=== PATIENT | male | born 1950 | race Caucasian/White ===

== ENCOUNTER 2018-04-05 13:37 | Observation (INO) | payer OTHER ==
[2018-04-05 14:27] LABS: Absolute Lymphocytes (CBC) 7.8 K/uL (0.7-4.9); Absolute Monocytes 1.1 K/uL (0.1-1.3); Absolute Neutrophil 6.4 K/uL (1.8-8.0); Basophils % 0.4 % (0-1.3); Eosinophils % 0.5 % (0-4.4); Hematocrit 42.8 % (39.6-49.0); Lymphocytes % 50.6 % (15.3-44.8); MCH 31.2 pg (27.0-35.0); MCV 91.9 fL (80-100); RBC Red Blood Cell Count 4.65 M/uL (4.33-5.43)
--- NOTE | 2018-04-05 14:33 | RAD REPORT ---
EXAM DESCRIPTION: RAD - Chest Single View - 04/05/2018 2:05 pm CLINICAL HISTORY: Chest pain COMPARISON: None. TECHNIQUE: AP portable chest image was obtained 1401 hours . FINDINGS: Lungs are clear. Heart and vasculature are normal. No measurable pleural effusion and no p neumothorax. No gross bony abnormality seen. No acute aortic findings suspected. IMPRESSION: No acute cardiopulmonary process.
[2018-04-05 14:35] LABS: Protime INR 1.11
--- NOTE | 2018-04-05 14:36 | EDPHYS ---
Physician Documentation [facility] Name: Oskar Gomez Age: 67 yrs Sex: Male : 1950 Arrival Date: 04/05/2018 Time: 13:40 Bed 5 Private MD: Ramesh Barker R ED Physician Mani Fields HPI: 04/05 14:25 This 67 yrs old Male presents to ER via Wheelchair with complaints of Chest ps1 Pain > 30 y/o. 14:25 The patient or guardian reports chest pain that is located primarily in the substernal ps1 area. Onset: 1 hour(s) ago. The pain does not radiate. Associated signs and symptoms: The patient has no apparent associated signs or symptoms. The chest pain is described as stabbing. No heart history. . 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 - Social history:: Smoking status: Patient/guardian denies using tobacco, Patient/guardian denies using alcohol, street drugs. - Ebola Screening: : Patient negative for fever greater than or equal to 101.5 degrees Fahrenheit, and additional compatible Ebola Virus Disease symptoms Patient denies exposure to infectious person Patient denies travel to an Ebola-affected area in the 21 days before illness onset No symptoms or risks identified at this time. ROS: 14:26 Constitutional: Negative for fever, chills, and weight loss, Eyes: Negative for injury, ps1 pain, redness, and discharge, Respiratory: Negative for shortness of breath, cough, wheezing, and pleuritic chest pain, Abdomen/GI: Negative for abdominal pain, nausea, vomiting, diarrhea, and constipation, Back: Negative for injury and pain, : Negative for injury, bleeding, discharge, and swelling, Skin: Negative for injury, rash, and discoloration, Neuro: Negative for headache, weakness, numbness, tingling, and seizure. 14:26 Cardiovascular: Positive for chest pain. Exam: 14:26 Constitutional: This is a well developed, well nourished patient who is awake, alert, ps1 and in no acute distress. Head/Face: Normocephalic, atraumatic. Eyes: Pupils equal round and reactive to light, extra-ocular motions intact. Lids and lashes normal. Conjunctiva and sclera are non-icteric and not injected. Chest/axilla: Normal chest wall appearance and motion. Nontender with no deformity. No lesions are appreciated. Cardiovascular: Regular rate and rhythm. No gallops, murmurs, or rubs. Normal PMI, no JVD. No pulse deficits. Respiratory: Lungs have equal breath sounds bilaterally, clear to auscultation and percussion. No rales, rhonchi or wheezes noted. No increased work of breathing, no retractions or nasal flaring. Abdomen/GI: Soft, non-tender, with normal bowel sounds. No distension or tympany. No guarding or rebound. No evidence of tenderness throughout. Skin: Warm, dry with normal turgor. Normal color with no rashes, no lesions, and no evidence of cellulitis. Vital Signs: 13:57 BP 153 / 81; Pulse 88; Resp 14; Temp 98.1; Pulse Ox 99% on R/A; Weight 78.02 kg; Height ch 5 ft. 8 in. (172.72 cm); Pain 3/10; 14:30 BP 163 / 77; Pulse 54; Resp 18; Pulse Ox 98% ; ch 15:00 BP 132 / 47; Pulse 53; Resp 16; Pulse Ox 99% on R/A; ch 13:57 Body Mass Index 26.15 (78.02 kg, 172.72 cm) MDM: 14:36 Patient medically screened. ps1 14:36 Data reviewed: vital signs, nurses notes, lab test result(s), EKG, radiologic studies. ps1 04/05 13:45 Order name: CBC with Diff; Complete Time: 16:02 04/05 13:45 Order name: NT PRO-BNP; Complete Time: 14:48 ps1 04/05 13:45 Order name: PT-INR; Complete Time: 14:42 ps1 04/05 13:45 Order name: Troponin (emerg Dept Use Only); Complete Time: 14:48 ps1 04/05 13:45 Order name: CMP; Complete Time: 14:48 ps1 04/05 14:55 Order name: Troponin I EDMS 04/05 13:45 Order name: XRAY Chest (1 view); Complete Time: 14:36 [facility] 04/05 13:45 Order name: EKG; Complete Time: 13:45 [facility] 04/05 14:55 Order name: CONS Physician Consult [facility] 04/05 14:55 Order name: Troponin I [facility] 04/05 15:33 Order name: Manual Differential; Complete Time: 16:02 [facility] 04/05 16:01 Order name: Urine Dipstick--Ancillary (enter results) 04/05 16:11 Order name: Urine Dipstick-Ancillary [facility] 04/05 13:45 Order name: Cardiac monitoring; Complete Time: 14:35 [facility] 04/05 13:45 Order name: EKG - Nurse/Tech; Complete Time: 14:35 [facility] 04/05 13:45 Order name: IV Saline Lock; Complete Time: 14:35 [facility] 04/05 13:45 Order name: Labs collected and sent; Complete Time: 14:35 [facility] 04/05 13:45 Order name: O2 Per Protocol; Complete Time: 14:35 [facility] 04/05 13:45 Order name: O2 Sat Monitoring; Complete Time: 14:35 [facility] 04/05 13:45 Order name: Urine Dipstick-Ancillary (obtain specimen); Complete Time: 15:44 [facility] 04/05 14:55 Order name: Regular [facility] 04/05 14:55 Order name: EKG Electrocardiogram [facility] 04/05 14:55 Order name: EKG Electrocardiogram [facility] 04/05 14:55 Order name: EKG Electrocardiogram [facility] 04/05 14:55 Order name: EKG Electrocardiogram [facility] EC:56 Rate is 85 beats/min. Rhythm is regular. QRS Brewer is Normal. MI interval is normal. QRS ps1 interval is normal. QT interval is normal. No Q waves. T waves are Normal. No ST changes noted. Clinical impression: Normal ECG. Reviewed by me. Administered Medications: 15:16 Drug: Aspirin 325 mg Route: PO; mg2 16:03 Follow up: Response: No adverse reaction; Marked relief of symptoms mg2 Disposition: 04/05/18 14:36 Hospitalization ordered by Ramesh Barker for Observation. Preliminary diagnosis is Chest pain, unspecified. - Bed requested for Telemetry/MedSurg (observation). - Status is Observation. mg2 - Condition is Stable. - Problem is new. - Symptoms are unchanged. UTI on Admission? No Signatures: Dispatcher [employer] EDMS Lakshmi Moser bd Susan Soto, RN RN ch Dominique Mota RN RN iw Mani Fields MD MD ps1 Barron Brown RN RN mg2 Corrections: (The following items were deleted from the chart) 15:49 14:36 Hospitalization Ordered by Ramesh Barker MD for Observation. Preliminary diagnosis bd is Chest pain, unspecified. Bed requested for Telemetry/MedSurg (observation). Status is Observation. Condition is Stable. Problem is new. Symptoms are unchanged. UTI on Admission? No. ps1 16:19 15:49 04/05/2018 14:36 Hospitalization Ordered by Ramesh Barker MD for Observation. mg2 Preliminary diagnosis is Chest pain, unspecified. Bed requested for Telemetry/MedSurg (observation). Status is Observation. Condition is Stable. Problem is new. Symptoms are unchanged. UTI on Admission? No. bd
--- NOTE | 2018-04-05 14:36 | ER ---
Nurse's Notes [facility] Name: Oskar Gomez Age: 67 yrs Sex: Male : 1950 Arrival Date: 04/05/2018 Time: 13:40 Bed 5 Private MD: Ramesh Barker R Diagnosis: Chest pain, unspecified Presentation: 04/05 13:52 Presenting complaint: Patient states: intermittent left sided CP started 90 minutes iw ago, fells like sharp stabbing pain every minute, mild SOB, is currently on abx for UTI, has been having fever and joint pain but symptoms are improving after starting abx. Transition of care: patient was not received from another setting of care. Onset of symptoms was April 05, 2018. Risk Assessment: Do you want to hurt yourself or someone else? Patient reports no desire to harm self or others. Initial Sepsis Screen: Does the patient meet any 2 criteria? No. Patient's initial sepsis screen is negative. Does the patient have a suspected source of infection? No. Patient's initial sepsis screen is negative. Care prior to arrival: None. 13:52 Method Of Arrival: Wheelchair iw 13:52 Acuity: MARINAA 3 iw Triage Assessment: 13:57 General: Appears in no apparent distress. comfortable, Behavior is calm, cooperative, ch appropriate for age. Pain: Complains of pain in diaphragm, xyphoid area, left breast and epigastric area Pain currently is 3 out of 10 on a pain scale. at worst was 7 out of 10 on a pain scale. Neuro: No deficits noted. Cardiovascular: Heart tones S1 S2 present Capillary refill < 3 seconds in bilateral fingers toes Clubbing of nail beds is present Patient's skin is warm and dry. Pulses are all present. Edema is absent. Cardiovascular: Reports chest pain, Chest pain is described as mild, intermittant. Respiratory: Airway is patent Respiratory effort is even, unlabored, Breath sounds are clear bilaterally. GI: No signs and/or symptoms were reported involving the gastrointestinal system. : No signs and/or symptoms were reported regarding the genitourinary system. Derm: Skin is pink, warm \T\ dry. 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 - Social history:: Smoking status: Patient/guardian denies using tobacco, Patient/guardian denies using alcohol, street drugs. - Ebola Screening: : Patient negative for fever greater than or equal to 101.5 degrees Fahrenheit, and additional compatible Ebola Virus Disease symptoms Patient denies exposure to infectious person Patient denies travel to an Ebola-affected area in the 21 days before illness onset No symptoms or risks identified at this time. Screenin:21 Abuse screen: Denies threats or abuse. Denies injuries from another. Nutritional ph screening: No deficits noted. Tuberculosis screening: No symptoms or risk factors identified. Fall Risk None identified. Assessment: 14:00 Reassessment: Patient appears in no apparent distress at this time. Patient and/or ch family updated on plan of care and expected duration. Pain level reassessed. Patient is alert, oriented x 3, equal unlabored respirations, skin warm/dry/pink. General: Appears in no apparent distress. comfortable, Behavior is calm, cooperative, appropriate for age. Pain: Pain does not radiate. Pain began suddenly. Neuro: No deficits noted. Level of Consciousness is awake, alert, obeys commands, Oriented to person, place, time, situation. Respiratory: No deficits noted. 14:10 Cardiovascular: Heart tones S1 S2 present Capillary refill < 3 seconds in bilateral ch fingers toes Patient's skin is warm and dry. Pulses are all present. Edema is absent. Rhythm is sinus rhythm Chest pain is described as severe, pt states the pain comes and goes, when it is there it is very bad, but now is gone, just a dull ache. 14:10 GI: No signs and/or symptoms were reported involving the gastrointestinal system. : No signs and/or symptoms were reported regarding the genitourinary system. Derm: Skin is pink, warm \T\ dry. 15:12 Reassessment: Patient appears in no apparent distress at this time. Patient and/or ch family updated on plan of care and expected duration. Pain level reassessed. Patient is alert, oriented x 3, equal unlabored respirations, skin warm/dry/pink. 15:16 Reassessment: Patient appears in no apparent distress at this time. Patient and/or mg2 family updated on plan of care and expected duration. Pain level reassessed. Patient is alert, oriented x 3, equal unlabored respirations, skin warm/dry/pink. received report from SERGIO BOLANOS. Vital Signs: 13:57 BP 153 / 81; Pulse 88; Resp 14; Temp 98.1; Pulse Ox 99% on R/A; Weight 78.02 kg; Height 5 ft. 8 in. (172.72 cm); Pain 3/10; 14:30 BP 163 / 77; Pulse 54; Resp 18; Pulse Ox 98% ; ch 15:00 BP 132 / 47; Pulse 53; Resp 16; Pulse Ox 99% on R/A; ch 13:57 Body Mass Index 26.15 (78.02 kg, 172.72 cm) ED Course: 13:40 Patient arrived in ED. sb2 13:41 Ramesh Barker MD is Private Physician. sb2 13:44 Mani Fields MD is Attending Physician. ps1 13:56 Triage completed. iw 13:56 Lydia Chapa, SERGIO is Primary Nurse. ph 13:57 Arm band placed on left wrist. Patient placed in an exam room, on a stretcher, on cardiac nurse, on pulse oximetry. 14:02 X-ray completed. Portable x-ray completed in exam room. Patient tolerated procedure ml well. 14:05 XRAY Chest (1 view) In Process Unspecified. EDMS 14:20 Initial lab(s) drawn, by me, sent to lab. Inserted saline lock: 20 gauge in left ph antecubital area, using aseptic technique. Blood collected. Patient maintains SpO2 saturation greater than 95% on room air. 14:22 Patient has correct armband on for positive identification. Placed in gown. Bed in low ph position. Call light in reach. bus monitor on. Pulse ox on. NIBP on. 14:35 Ramesh Barker MD is Hospitalizing Provider. ps1 16:02 No provider procedures requiring assistance completed. Patient admitted, IV remains in mg2 place. Administered Medications: 15:16 Drug: Aspirin 325 mg Route: PO; mg2 16:03 Follow up: Response: No adverse reaction; Marked relief of symptoms mg2 Outcome: 14:36 Decision to Hospitalize by Provider. ps1 16:02 Admitted to Tele accompanied by nurse, via wheelchair, room 411, with chart, Report mg2 called to SERGIO Borrego 16:02 Condition: stable 16:02 Instructed on the need for admit. 16:19 Patient left the ED. mg2 Signatures: Dispatcher [employer] Susan Stephens, SERGIO RN Dominique Andrade RN RN iw Lopez, Melissa ml Hall, Patricia, RN RN Mani Fields MD MD ps1 Honey Hurley2 Barron Brown RN RN mg2 Corrections: (The following items were deleted from the chart) 15:15 15:14 Reassessment: Patient appears in no apparent distress at this time. Patient ch and/or family updated on plan of care and expected duration. Pain level reassessed. Patient is alert, oriented x 3, equal unlabored respirations, skin warm/dry/pink. Pt resting quietly, awaiting room assignment, VSS, SO at bedside
--- NOTE | 2018-04-05 14:45 | EKG ---
Test Date: 2018-04-05 Test Time: 13:56:37 Food Storeroom Clerk: AG/S MEASUREMENT RESULTS: Intervals: Rate: 85 LA: 120 QRSD: 82 QT: 354 QTc: 421 [place]: P: 58 LA: 120 QRS: -28 T: 24 INTERPRETIVE STATEMENTS: Normal sinus rhythm Possible Left atrial enlargement Borderline ECG Compared to ECG 02/18/2012 16:31:01 Left-axis deviation no longer present Electronically Signed On 04-05-18 14:44:51 CDT by Derrell Garnica
[2018-04-05 14:46] LABS: Albumin 4.5 g/dL (3.4-5.0); Bilirubin Total 0.4 mg/dL (0.2-1.0); Potassium 3.9 mmol/L (3.5-5.1); Protein, Total 8.2 g/dL (6.4-8.2)
[2018-04-05] MEDS ORDERED: ONDANSETRON 4 MG/2 ML VIAL IV PRN (14:54)
[2018-04-05] MEDS ORDERED: MORPHINE 4 MG/ML SYR IV PRN (14:54)
[2018-04-05] MEDS ORDERED: ASPIRIN EC 81 MG TAB PO ONE (15:15)
[2018-04-05 15:32] LABS: Blood Morphology Comment NOT SEEN (NOT SEEN); Platelet Estimate ADEQ
[2018-04-05] MEDS: ASPIRIN EC 81 MG TAB PO SCH (16:00)
[2018-04-05 16:10] LABS: Urine Blood 1+ (NEG); Urine Glucose NEGATIVE (NEG); Urine Protein NEGATIVE (NEG); Urine Specific Gravity 1.015 (1.005-1.030); Urine pH 5.5 (5.0-7.0)
[2018-04-05] MEDS ORDERED: PNEUMOCOCCAL VACCINE 0.5 ML IMVAC ONE (18:00)
[2018-04-05] MEDS: ACETAMINOPHEN 500 MG TAB PO PRN (19:01)
[2018-04-05] MEDS: ENOXAPARIN 80 MG/0.8 ML SQ SCH (20:52)
[2018-04-06 04:35] LABS: Absolute Lymphocytes (CBC) 10.2 K/uL (0.7-4.9); Absolute Monocytes 0.8 K/uL (0.1-1.3); Absolute Neutrophil 5.4 K/uL (1.8-8.0); Basophils % 0.6 % (0-1.3); Eosinophils % 0.5 % (0-4.4); Hematocrit 43.1 % (39.6-49.0); MCH 31.5 pg (27.0-35.0); MCV 90.4 fL (80-100); MPV 7.5 fL (7.6-11.3); Monocytes % 4.9 % (3.3-12.3); RBC Red Blood Cell Count 4.76 M/uL (4.33-5.43)
[2018-04-06 04:53] LABS: Lymphocytes % 61.5 % (15.3-44.8)
[2018-04-06 05:01] LABS: Potassium 4.1 mmol/L (3.5-5.1)
[2018-04-06] MEDS ORDERED: CEFEPIME 2 GM VIAL IV SCH (08:00)
[2018-04-06] MEDS ORDERED: REGADENOSON 0.4 MG/5 ML SYR IV ONE (08:17)
--- NOTE | 2018-04-06 09:23 | RAD REPORT ---
EXAM DESCRIPTION: CT - Abdomen Pelvis Wo Contrast - 04/06/2018 8:22 am CLINICAL HISTORY: Abdominal pain. unresolving uti COMPARISON: CT HEAD SPINE CAP W CONTRAST dated 05/14/2011 TECHNIQUE: CT imaging of the abdomen and pelvis was performed without contrast. Solid organ, bowel a nd vascular assessment is limited due to lack of IV and oral contrast. All CT scans are performed using dose optimization technique as appropriate and may include automated exposure control or mA/KV adjustment according to patient size. FINDINGS: The lower lung reyes are clear. The liver, spleen, pancreas, adrenal glands and kidneys are within normal limits for a limited non-co ntrast examination. No bowel obstruction, free air, free fluid or abscess. The appendix is normal. Lumbosacral degenerative changes are present. IMPRESSION: No acute intra-abdominal or pelvic findings. A limited non-contrast examination was performed as detailed.
[2018-04-06] MEDS: ENOXAPARIN 80 MG/0.8 ML SQ SCH (09:25)
[2018-04-06] MEDS: ASPIRIN EC 81 MG TAB PO SCH (09:25)
[2018-04-06] MEDS: CEFEPIME/SWI 2gm 2 GM/20 ML SYR IV SCH (09:26)
--- NOTE | 2018-04-06 10:33 | ECHO ---
HEIGHT: 5 ft 8 in WEIGHT: 178 lb 0 oz DATE OF STUDY: 04/06/[address]: Son Melendez MD 2-DIMENSIONAL: YES M.MODE: YES DOPPLER: YES COLOR FLOW: YES TDS: NO PORTABLE: NO DEFINITY: NO BUBBLE STUDY: NO DIAGNOSIS: CHEST PAIN CARDIAC HISTORY: CATHERIZATION: NO SURGERY: NO PROSTHETIC VALVE: NO PACEMAKER: NO MEASUREMENTS (cm) DIASTOLIC (NORMALS) SYSTOLIC (NORMALS) IVSd 1.0 (0.6-1.2) LA Diam 4.6 (1.9-4.0) LVEF 60-69% LVIDd 4.9 (3.5-5.7) LVIDs 3.5 (2.0-3.5) %FS 29% LVPWd 1.0 (0.6-1.2) Ao Diam 2.7 (2.0-3.7) 2 DIMENSIONAL ASSESSMENT: RIGHT ATRIUM: NORMAL LEFT ATRIUM: NORMAL RIGHT VENTRICLE: NORMAL LEFT VENTRICLE: NORMAL TRICUSPID VALVE: NORMAL MITRAL VALVE: NORMAL PULMONIC VALVE: NORMAL AORTIC VALVE: NORMAL PERICARDIAL EFFUSION: NONE AORTIC ROOT: NORMAL LEFT VENTRICULAR WALL MOTION: NORMAL. DOPPLER/COLOR FLOW: PHYSIOLOGIC TRICUSPID REGURGITATION. NORMAL RIGHT VENTRICULAR SYSTOLIC PRESSURE. COMMENTS: NORMAL 2D ECHO WITH DOPPLER. TECHNOLOGIST: TASHA MC
[2018-04-06] MEDS ORDERED: BISACODYL E.C. 5 MG TAB PO ONE (13:35)
--- NOTE | 2018-04-06 13:36 | CON ---
Chief Complaint: Chest pain. History Of Present Illness: Mr. Gomez started having chest pains yesterday around noon. The pains a re described as several hours of stabbing pain that would het hard, feel like an ice pick go away in less than a second, only to come back 30 seconds later, 15 seconds later, or hours later. He has had too many dozens of the pains. He is presently feeling good. He has been in the hospital overnight where cardiac enzymes are borderline. The troponins are 0.06 and 0.07. Mr. Gomez has never had myoc ardial infarction or stroke. Does not use tobacco. Never had any vascular disease. Does not have d iabetes. Does not take blood pressure or diabetes medicines. He gets checkups with Dr. Barker and is considered not in need of those medications. No recent surgeries, fevers, or illnesses. Allergies: HE HAS NO ALLERGIES. Physical Examination: General: He is alert, oriented, pleasant. Vital Signs: 5 feet 8 inches, 178 pounds. Blood pressure 126/64, pulse 81, temperature 99.8. Lungs: Clear. Cardiac: Normal. Carotids: No bruit. Extremities: Normal. No cyanosis, clubbing, or edema. Diagnostic Data: EKG shows possible left atrial abnormality, otherwise normal. His chest x-ray look s normal. He has had a CT of the abdomen, which has not been reported out by the radiologist yet. W e are unable to view the images. I am not able to see anything there that would be the cause of his chest pain, but again the radiologist's report is not available. Apparently, it is a noncontrast CT of the abdomen. We will wait for the radiologist's opinion. Impression: The patient probably is not having coronary artery disease. We will do echocardiogram, pharmacologic stress test to see what we learn. The troponins of 0.06 and 0.07 do not necessarily in dicate an acute coronary syndrome. We will do a cardiac cath if there appeared to be ischemic heart disease. CLARA/SEVERINO Voice ID: [id number] Report ID: [id number]
--- NOTE | 2018-04-06 13:46 | RAD REPORT ---
EXAM DESCRIPTION: NM - Rest Stress Cardiac Imaging - 04/06/2018 1:33 pm CLINICAL HISTORY: Chest pain. COMPARISON: None. TECHNIQUE: The patient was administered approximately 10mCi of Tc 99m Sestamibi prior to resting SPE CT imaging of the heart. The patient was then administered approximately 30 mCi of Tc 99m Sestamibi f ollowing exercise or pharmacologic stress. Multiplanar SPECT images were reviewed. FINDINGS: There is uniformity of radiotracer activity involving the entire left ventricular myocard ium on rest and stress sequences. The left ventricular ejection fraction equals 54% IMPRESSION: Negative for a myocardial perfusion defect
--- NOTE | 2018-04-06 14:32 | TREADPHA ---
DX: CHEST PAIN Date of Study: 04/06/2018 Ht: 5 8 Wt: 178 lb 0 oz Consulting Physician: BEBO MEDICATIONS: TYLENOL, ASPIRIN, LOVENOX, ZOFRAN HISTORY: 67 YEAR OLD MALE WITH CHEST PAIN. HISTORY OF HEP C. PHYSICIAL EXAMINATION: RESTING B.P.: 122/70 RESTING H.R.: 74 RESTING EKG: NORMAL PROTOCOL: LEXISCAN EXERCISE TIME: 3:30 B.P. AT PEAK STRESS: 160/94 IMPRESSION: LEXISCAN INJECTED. CARDIOLITE INJECTED PER PROTOCOL. SEE NUCLEAR MEDICINE REPORT. NO CHEST PAIN. NO VENTRICULAR TACHYCARDIA OR SUPRAVENTRICULAR TACHYCARDIA NOTED. PREMATURE VENTRICULAR COMPLEXES NOTED THROUGHOUT TEST. NON DIAGNOSTIC EKG WITH LEXISCAN STRESS TEST.
--- NOTE | 2018-04-06 14:35 | EKG ---
Test Date: 2018-04-06 Test Time: 07:43:03 Fisher Pot: VIJI MEASUREMENT RESULTS: Intervals: Rate: 87 [place]: 126 QRSD: 84 QT: 374 QTc: 450 [place]: P: 62 AZ: 126 QRS: -23 T: 14 INTERPRETIVE STATEMENTS: Sinus rhythm with occasional premature ventricular complexes Otherwise normal ECG Compared to ECG 04/05/2018 13:56:37 Ventricular premature complex(es) now present Electronically Signed On 04-06-18 14:34:28 CDT by Son Melendez
[2018-04-06] MEDS: ACETAMINOPHEN 500 MG TAB PO PRN (15:37)
--- NOTE | 2018-04-06 17:44 | HP ---
Date of Admission: 04/05/2018 Chief Complaint: Recurrent chest pain. History Of Present Illness: A 67-year-old male was brought to the emergency room with recurrent epis odes of chest pain in the precordial area. There was no history of fever, chills, rigors, however, t he patient according to him, was seen in [facility]gent [facility] Center where he was diagnosed to have urinary tr act infection. He is on Cipro. The patient denied any history of shortness of breath. Past Medical History: The patient is known to have history of hepatitis, in remission. Past Surgical History: Positive for shoulder surgery and back surgeries. Allergies: NONE. Home Medicines: Cipro. Review of Systems: No history of abdominal pain, shortness of breath. Physical Examination: General: Revealed 67-year-old male in acute distress. Vital Signs: Normal. HEENT: Negative. Neck: Supple. JVD negative. Chest: Clear. Heart: Regular. Abdomen: Soft. Extremities: No edema. Neurological: Negative. Laboratory Data: White count elevated to 15,000. Urinalysis positive for UTI. BNP normal. Troponi n borderline elevations of 0.6 and 0.7. Assessment: 1.Recurrent chest pain. 2.Borderline elevation of troponin. 3.Recently diagnosed urinary tract infection. Plan: The patient has been started on Lovenox and aspirin, pending the Cardiology recommendations. LIZETH/SEVERINO Voice ID: [id number]
[2018-04-07 04:54] LABS: Absolute Lymphocytes (CBC) 8.7 K/uL (0.7-4.9); Absolute Monocytes 0.9 K/uL (0.1-1.3); Absolute Neutrophil 5.4 K/uL (1.8-8.0); Basophils % 0.4 % (0-1.3); Eosinophils % 0.9 % (0-4.4); Hematocrit 43.9 % (39.6-49.0); MCH 31.1 pg (27.0-35.0); MCV 91.8 fL (80-100); MPV 7.6 fL (7.6-11.3); Monocytes % 5.8 % (3.3-12.3); RBC Red Blood Cell Count 4.78 M/uL (4.33-5.43)
[2018-04-07 05:03] LABS: Lymphocytes % 57.5 % (15.3-44.8)
--- NOTE | 2018-04-07 10:19 | RAD REPORT ---
EXAM DESCRIPTION: CTAbdomen Pelvis W Contrast - 04/07/2018 9:25 am CLINICAL HISTORY: Abdominal pain. febrile illness COMPARISON: Abdomen Pelvis Wo Contrast dated 04/06/2018; CT HEAD SPINE CAP W CONTRAST dated 05/14/2011 TECHNIQUE: Biphasic CT imaging of the abdomen and pelvis was performed with 100 ml non-ionic IV cont rast. All CT scans are performed using dose optimization technique as appropriate and may include automated exposure control or mA/KV adjustment according to patient size. FINDINGS: The lung bases are clear. The liver, spleen, pancreas, adrenal glands and kidneys are within normal limits. No bowel obstruction, free air, free fluid or abscess. The appendix is normal. No evidence of signi ficant lymphadenopathy. No suspicious bony findings. IMPRESSION: No acute intra-abdominal or pelvic finding.
[2018-04-07] MEDS: CEFEPIME/SWI 2gm 2 GM/20 ML SYR IV SCH (10:41)
[2018-04-07] MEDS: ASPIRIN EC 81 MG TAB PO SCH (10:42)
--- NOTE | 2018-04-29 14:11 | DS ---
Date of Discharge: 04/07/2018 Final Diagnoses: 1.Chest pain. 2.Urinary tract infection. Hospital Course: This patient was brought to the emergency room because of recurrent chest pain. Th e patient had borderline elevation of troponin. The patient subsequently underwent pharmacological s tress test. There was no evidence of ischemia. The patient had a CAT scan of the abdomen to see if there was any reason to have other causes of his chest pain. Essentially, CAT scan was negative. Th e patient was continued on antibiotic while he was in the hospital. He was also given antibiotics to take home to continue to take, and follow up in the office. Laboratory Data: White count [id number], troponin 0.6. Urinalysis, evidence of infection present. LIZETH/SEVERINO Voice ID: [id number] Report ID: [id number]
== END 2018-04-07 14:58 | disposition home or self-care (01) ==
LOC: ER 13:37 → ERHOLD 14:54 → 4TH 16:02
PROVIDERS: ADMIT Internal Medicine; ATTEND Internal Medicine
DX: R07.9 Chest pain, unspecified (principal); R74.8 Abnormal levels of other serum enzymes; N39.0 Urinary tract infection, site not specified; Z79.2 Long term (current) use of antibiotics; B18.2 Chronic viral hepatitis C
CPT/HCPCS: 36415 ×2; 71045; 74176; 74177; 78452; 80048; 80053; 81003; 83880; 84484 ×3; 85025 ×3; 85610; 87040; 93005 ×2; 93017; 93306; 99285; A9500; G0103; G0378 ×2; J0692 ×2; J1650 ×2; J2785; Q9967

== ENCOUNTER 2018-11-30 16:20 | Observation (INO) | payer OTHER ==
[2018-11-30] MEDS: ALBUTEROL 2.5 MG/3 ML NEB SOL NEB SCH ×2 (17:38→19:51)
[2018-11-30 17:59] LABS: Absolute Lymphocytes (CBC) 8.8 K/uL (0.7-4.9); Basophils % 0.3 % (0-1.3); Eosinophils % 1.3 % (0-4.4); Hematocrit 45.2 % (39.6-49.0); Lymphocytes % 41.7 % (15.3-44.8); MPV 6.5 fL (7.6-11.3); Monocytes % 4.6 % (3.3-12.3)
[2018-11-30 18:14] LABS: Albumin 4.4 g/dL (3.4-5.0); Bilirubin Total 0.6 mg/dL (0.2-1.0); Potassium 4.3 mmol/L (3.5-5.1); Protein, Total 8.4 g/dL (6.4-8.2)
[2018-11-30 18:56] LABS: Blood Morphology Comment NOT SEEN (NOT SEEN); Platelet Estimate ADEQ; Platelets, Giant NOTED
[2018-11-30] MEDS: Levofloxacin500mg IV 500 MG/100 ML BAG IV SCH (19:25)
[2018-11-30 22:19] LABS: Urine Appearance CLEAR; Urine Bilirubin NEGATIVE (NEG); Urine Blood NEGATIVE (NEG); Urine Color YELLOW; Urine Glucose NEGATIVE (NEG); Urine Protein NEGATIVE (NEG); Urine Urobilinogen 0.2 mg/dL (0.2-1.0)
[2018-11-30 22:34] LABS: Urine Microscopic Reflex ORDER UMIC
[2018-11-30 22:59] LABS: Urine Bacteria <20 /HPF (NONE SEEN); Urine Culture Reflex Order REFLEXED
[2018-11-30 23:00] LABS: Urine RBC <5 /HPF (NONE SEEN)
[2018-12-01] MEDS: ALBUTEROL 2.5 MG/3 ML NEB SOL NEB SCH ×4 (01:17→20:15)
[2018-12-01] MEDS: Levofloxacin500mg IV 500 MG/100 ML BAG IV SCH (17:25)
--- NOTE | 2018-12-02 01:31 | HP ---
Date of Admission: 11/30/2018 Chief Complaint: Pneumonia. History Of Present Illness: A 68-year-old male was seen in the Urgent Care roughly 10 days to 2 week s ago. He was given Augmentin for upper respiratory infection. He returned to Urgent Care because o f continued cough and fever. He had chest x-ray, which showed pneumonia. The patient was given Bact rim. The patient, however, followed up in the office with continued symptoms in view of failure of o ral antibiotic and pneumonia as well as febrile nature. The patient is admitted for IV antibiotic [facility] ([place], [place]). The patient denied any history of chest pain. Past Medical History: Essentially negative. No history of hypertension, diabetes. Family History: Noncontributory. Personal History: No known allergies. Current Medicines: Bactrim. Review of Systems: No chest pain. Physical Examination: General: Revealed 68-year-old male with mild wheezing. HEENT: Congested throat. Neck: Supple. JVD negative. Chest: Crackles, left more than the right. Heart: Regular. Abdomen: Soft. Extremities: No edema. Laboratory Data: White count elevated to 21,000. Chem profile essentially negative. Assessment: Pneumonia, failure of oral antibiotics. Plan: IV Levaquin, breathing treatments, follow up chest x-ray. LIZETH/SEVERINO Voice ID: [id number]
[2018-12-02] MEDS: ALBUTEROL 2.5 MG/3 ML NEB SOL NEB SCH ×4 (02:50→20:00)
--- NOTE | 2018-12-02 08:51 | RAD REPORT ---
EXAM DESCRIPTION: Sobeida Pa And Lat (2 Views)12/02/2018 8:07 am CLINICAL HISTORY: Cough COMPARISON: November 29, 2018 FINDINGS: Mild left lung opacities have partially resolved. A 7 millimeter nodular opacity overlies the mid to lower left lung. Most likely this represents a nip ple shadow. As a pulmonary nodule can also have this appearance it is recommended that the patient bar ve frontal and oblique views of the chest with a left nipple marker. The heart is normal size
--- NOTE | 2018-12-02 16:15 | RAD REPORT ---
EXAM DESCRIPTION: RAD - Chest W Obliques - 12/02/2018 4:08 pm CLINICAL HISTORY: Pneumonia, abnormal chest film COMPARISON: Two view chest December 02 TECHNIQUE: AP and bilateral oblique views of the chest were obtained with nipple markers in place. FINDINGS: Small nodular density seen on the earlier examination represents a nipple shadow. No focal consolidation or suspicious mass. No failure or volume overload. IMPRESSION: Small nodule seen on the earlier chest film represents a nipple shadow. No pneumonia or acute lung parenchymal process.
[2018-12-02] MEDS: Levofloxacin500mg IV 500 MG/100 ML BAG IV SCH (17:06)
--- NOTE | 2018-12-02 23:43 | PN ---
The patient is doing better. He still has considerable amount of wheezing. Chest x-ray done showed pulmonary nodule. A repeat x-ray has been ordered to see whether there is a true pulmonary nodule. LIZETH/SEVERINO Voice ID: [id number] Report ID: [id number]
[2018-12-03] MEDS: ALBUTEROL 2.5 MG/3 ML NEB SOL NEB SCH ×2 (02:00→07:57)
== END 2018-12-03 10:21 | disposition home or self-care (01) ==
LOC: 2ND 16:31 → INTOOBSV 16:31
PROVIDERS: ADMIT Internal Medicine; ATTEND Internal Medicine
DX: J18.9 Pneumonia, unspecified organism (principal); R91.1 Solitary pulmonary nodule
CPT/HCPCS: 87040 ×2; 87088; 87070; 85025; 36415; 87205; 83605; 80053; 71046; 71022; 94640; G0379; G0378; 81003; 81015; 87086

== ENCOUNTER 2021-02-13 08:13 | Emergency (ER) | payer OTHER ==
--- NOTE | 2021-02-13 09:21 | RAD REPORT ---
EXAM DESCRIPTION: RAD - Elbow Right 3 View - 02/13/2021 9:16 am CLINICAL HISTORY: PAIN COMPARISON: No comparisons FINDINGS: Moderate arthritic changes are present involving the right elbow. A small elbow joint effu jessie is likely present as well. No acute fracture seen.
[2021-02-13] MEDS ORDERED: METHYLPREDNISOLONE 125 MG INJ ONE (10:02)
[2021-02-13] MEDS ORDERED: HYDROCODONE/APAP 7.5/325 MG TAB ONE (10:02)
[2021-02-13] MEDS ORDERED: KETOROLAC 30 MG/ML INJ ONE (10:03)
[2021-02-13] MEDS ORDERED: NA CHLORIDE 0.9% 100 ML ONE (11:06)
[2021-02-13] MEDS ORDERED: METHOCARBAMOL 1,000 MG/10 ML VIAL IV ONE (11:06)
--- NOTE | 2021-02-13 12:02 | EDPHYS ---
Physician Documentation [facility] Name: Oskar Gomez Age: 70 yrs Sex: Male : 1950 Arrival Date: 02/13/2021 Time: 08:16 Bed 19 Private MD: Ramesh Barker R ED Physician Shantanu Etienne HPI: 02/13 14:09 This 70 yrs old Male presents to ER via Ambulatory with complaints of Arm kdr Pain. 14:09 The patient or guardian complains of decreased range of motion, injury, pain, spasm, kdr tightness, tenderness. The complaints affect the dorsal aspect of right forearm and right elbow. Context: The problem was sustained at home, resulted from unknown cause. Onset: The symptoms/episode began/occurred acutely, suddenly, at 02:30. Treatment prior to arrival includes: no previous treatment. Modifying factors: The symptoms are alleviated by remaining still, the symptoms are aggravated by movement, bending arm. Associated signs and symptoms: The patient has no apparent associated signs or symptoms. Severity of symptoms: At their worst the symptoms were moderate, incapacitating, just prior to arrival, in the emergency department the symptoms are unchanged. The patient has not experienced similar symptoms in the past. The patient has not recently seen a physician. Historical: - Allergies: 11:21 No Known Allergies; kg - PMHx: 11:21 hep c in remission; Chromic Lymphocytic Leukemia; kg - Immunization history:: Adult Immunizations up to date. - Social history:: Smoking status: Patient denies any tobacco usage or history of. ROS: 14:09 Constitutional: Negative for fever, chills, and weight loss, Eyes: Negative for injury, kdr pain, redness, and discharge, ENT: Negative for injury, pain, and discharge, Neck: Negative for injury, pain, and swelling, Cardiovascular: Negative for chest pain, palpitations, and edema, Respiratory: Negative for shortness of breath, cough, wheezing, and pleuritic chest pain, Abdomen/GI: Negative for abdominal pain, nausea, vomiting, diarrhea, and constipation, Back: Negative for injury and pain, : Negative for injury, bleeding, discharge, and swelling, Skin: Negative for injury, rash, and discoloration, Neuro: Negative for headache, weakness, numbness, tingling, and seizure activity. Psych: Negative for depression, anxiety, suicide ideation, homicidal ideation, and hallucinations, Allergy/Immunology: Negative for hives, rash, and allergies, Endocrine: Negative for neck swelling, polydipsia, polyuria, polyphagia, and marked weight changes, Hematologic/Lymphatic: Negative for swollen nodes, abnormal bleeding, and unusual bruising. 14:09 MS/extremity: Positive for decreased range of motion, pain, of the dorsal aspect of right forearm and right elbow. Exam: 14:09 Constitutional: This is a well developed, well nourished patient who is awake, alert, kdr and in no acute distress. Head/Face: Normocephalic, atraumatic. Eyes: Pupils equal round and reactive to light, extra-ocular motions intact. Lids and lashes normal. Conjunctiva and sclera are non-icteric and not injected. Cornea within normal limits. Periorbital areas with no swelling, redness, or edema. Neck: Trachea midline, no thyromegaly or masses palpated, and no cervical lymphadenopathy. Supple, full range of motion without nuchal rigidity, or vertebral point tenderness. No Meningismus. 14:09 Musculoskeletal/extremity: Extremities: grossly normal except: noted in the dorsal aspect of right forearm and right elbow: decreased ROM, pain, Spasm with any movement of the elbow. . Vital Signs: 08:35 BP 200 / 96; Pulse 80; Resp 18; Temp 98.7; Pulse Ox 99% on R/A; Weight 79.38 kg (R); kg Height 5 ft. 8 in. (172.72 cm) (R); Pain 7/10; 08:38 BP 200 / 96; Pulse 80; Resp 18; Temp 98.7(O); Pulse Ox 99% on R/A; Weight 79.38 kg; mh5 Height 5 ft. 8 in. (172.72 cm); Pain 10/10; 09:00 BP 154 / 70; Pulse 75; Resp 20; Pulse Ox 96% on R/A; kg 10:00 BP 169 / 81; Pulse 79; Resp 20; Pulse Ox 96% on R/A; kg 11:00 BP 176 / 94; Pulse 81; Resp 20; Pulse Ox 95% ; kg 12:00 BP 159 / 84; Pulse 75; Resp 20; Pulse Ox 95% on R/A; kg 08:38 Body Mass Index 26.61 (79.38 kg, 172.72 cm) mh5 MDM: 12:01 Patient medically screened. kdr 14:09 Data reviewed: vital signs, nurses notes. Counseling: I had a detailed discussion with kdr the patient and/or guardian regarding: the historical points, exam findings, and any diagnostic results supporting the discharge/admit diagnosis, lab results, radiology results, the need for outpatient follow up. Response to treatment: the patient's symptoms have markedly improved after treatment, patient is well hydrated. Special discussion: I discussed with the patient/guardian in detail that at this point there is no indication for admission to the hospital. It is understood, however, that if the symptoms persist or worsen the patient needs to return immediately for re-evaluation. 02/13 08:51 Order name: Elbow Right 3 View XRAY; Complete Time: 10:09 kdr Administered Medications: 09:34 Drug: SOLU-Medrol (methylPrednisoLONE) 125 mg Route: IVP; Site: left antecubital; kg 10:00 Follow up: Response: No adverse reaction kg 09:34 Drug: TORadol - (ketorolac) 15 mg Route: IVP; Site: left antecubital; kg 10:00 Follow up: Response: No adverse reaction kg 09:34 Drug: [place] (HYDROcodone-acetaminophen) (7.5 mg-325 mg) 1 tabs Route: PO; kg 10:00 Follow up: Response: No adverse reaction; Pain is unchanged, physician notified kg 10:47 Drug: Robaxin (methocarbamol) 1 grams Route: IVPB; Infused Over: 1 hrs; Site: right kg forearm; 11:15 Follow up: IV Status: Completed infusion; IV Intake: 100ml kg Disposition: 02/13/21 12:01 Discharged to Home. Impression: Pain in right elbow. - Condition is Stable. - Discharge Instructions: Arthritis, Musculoskeletal Pain, Cryotherapy, [id number], Joint Pain, Rcrx-kn-Butz. - Prescriptions for Ibuprofen 800 mg Oral Tablet - take 1 tablet by ORAL route every 8 hours As needed take with food; 30 tablet. Robaxin 500 mg Oral Tablet - take 2 tablet by ORAL route every 6 hours As needed; 40 tablet. Medrol (Rico) 4 mg Oral Tablets, Dose Pack - take 1 tablet by ORAL route as directed - follow package instructions; 1 packet. Tramadol 50 mg Oral Tablet - take 1 tablet by ORAL route every 8 hours as needed; 12 tablet. - Medication Reconciliation Form, Thank You Letter, Prescription Opioid Use form. - Follow up: Ramesh Barker MD; When: 2 - 3 days; Reason: If symptoms return, Further diagnostic work-up, Recheck today's complaints, Continuance of care, Re-evaluation by your physician. - Problem is new. - Symptoms have improved. Signatures: Dispatcher [employer] EDShantanu Dodd MD MD kdr Renu Natarajan RN RN kg Corrections: (The following items were deleted from the chart) 12:13 12:01 02/13/2021 12:01 Discharged to Home. Impression: Pain in right elbow. Condition kg is Stable. Forms are Medication Reconciliation Form, Thank You Letter, Antibiotic Education, Prescription Opioid Use. Follow up: Ramesh Barker; When: 2 - 3 days; Reason: If symptoms return, Further diagnostic work-up, Recheck today's complaints, Continuance of care, Re-evaluation by your physician. Problem is new. Symptoms have improved. kdr
--- NOTE | 2021-02-13 12:02 | ER ---
Nurse's Notes [facility] Name: Oskar Gomez Age: 70 yrs Sex: Male : 1950 Arrival Date: 02/13/2021 Time: 08:16 Bed 19 Private MD: Ramesh Barker R Diagnosis: Pain in right elbow Presentation: 02/13 08:35 Initial Sepsis Screen: Does the patient meet any 2 criteria? No. Patient's initial kg sepsis screen is negative. Does the patient have a suspected source of infection? No. Patient's initial sepsis screen is negative. Risk Assessment: Do you want to hurt yourself or someone else? Patient reports no desire to harm self or others. Onset of symptoms was February 13, 2021. 08:35 Acuity: MARIANA 4 kg 08:42 Chief complaint: Patient states: Pt presents from home via POV with complaints of right kg shoulder, elbow, and arm pain starting last night. Coronavirus screen: Client denies travel out of the [place] in the last 14 days. Ebola Screen: Patient negative for fever greater than or equal to 101.5 degrees Fahrenheit, and additional compatible Ebola Virus Disease symptoms Patient denies exposure to infectious person. Patient denies travel to an Ebola-affected area in the 21 days before illness onset. 08:42 Method Of Arrival: Ambulatory kg Historical: - Allergies: 11:21 No Known Allergies; kg - PMHx: 11:21 hep c in remission; Chromic Lymphocytic Leukemia; kg - Immunization history:: Adult Immunizations up to date. - Social history:: Smoking status: Patient denies any tobacco usage or history of. Screenin:50 Abuse screen: Denies threats or abuse. Denies injuries from another. Nutritional kg screening: No deficits noted. Tuberculosis screening: No symptoms or risk factors identified. Fall Risk None identified. No fall in past 12 months (0 pts). No secondary diagnosis (0 pts). No IV (0 pts). Ambulatory Aid- None/Bed Rest/Nurse Assist (0 pts). Gait- Normal/Bed Rest/Wheelchair (0 pts) Mental Status- Oriented to own ability (0 pts). Total Cherry Fall Scale indicates No Risk (0-24 pts). Assessment: 08:47 General: Appears in no apparent distress. Behavior is calm, cooperative, appropriate kg for age, quiet. Pain: Complains of pain in right arm Pain does not radiate. Pain currently is 7 out of 10 on a pain scale. at worst was 10 out of 10 on a pain scale. level that patient reports is acceptable is 3 out of 10 on a pain scale. Quality of pain is described as sharp, stabbing, Pain began 4 hours ago. Is continuous, Alleviated by nothing. Aggravated by exercise, repositioning, Noted to be grimacing. Neuro: No deficits noted. Cardiovascular: No deficits noted. Respiratory: No deficits noted. GI: No deficits noted. : No deficits noted. EENT: No deficits noted. Derm: No deficits noted. Musculoskeletal: No deficits noted. Musculoskeletal: Reports pain in anterior aspect of right shoulder, right bicep, right antecubital area, dorsal aspect of right forearm, posterior aspect of right shoulder, right tricep, right elbow and palmar aspect of right forearm since This AM. Pain is 7 out of 10 on a pain scale. Vital Signs: 08:35 BP 200 / 96; Pulse 80; Resp 18; Temp 98.7; Pulse Ox 99% on R/A; Weight 79.38 kg (R); kg Height 5 ft. 8 in. (172.72 cm) (R); Pain 7/10; 08:38 BP 200 / 96; Pulse 80; Resp 18; Temp 98.7(O); Pulse Ox 99% on R/A; Weight 79.38 kg; mh5 Height 5 ft. 8 in. (172.72 cm); Pain 10/10; 09:00 BP 154 / 70; Pulse 75; Resp 20; Pulse Ox 96% on R/A; kg 10:00 BP 169 / 81; Pulse 79; Resp 20; Pulse Ox 96% on R/A; kg 11:00 BP 176 / 94; Pulse 81; Resp 20; Pulse Ox 95% ; kg 12:00 BP 159 / 84; Pulse 75; Resp 20; Pulse Ox 95% on R/A; kg 08:38 Body Mass Index 26.61 (79.38 kg, 172.72 cm) [facility] ED Course: 08:16 Patient arrived in ED. mr 08:16 Ramesh Barker MD is Private Physician. mr 08:41 Shantanu Etienne MD is Attending Physician. kdr 08:42 Delgado, Renu, RN is Primary Nurse. kg 08:44 Patient has correct armband on for positive identification. Bed in low position. Call mh5 light in reach. Side rails up X2. Warm blanket given. Pulse ox on. NIBP on. 08:47 Triage completed. kg 09:15 Elbow Right 3 View XRAY In Process Unspecified. EDMS 11:21 Arm band placed on left wrist. kg 12:00 Ramesh Barker MD is Referral Physician. kdr 12:12 No provider procedures requiring assistance completed. IV discontinued, intact, kg bleeding controlled, No redness/swelling at site. Pressure dressing applied. Administered Medications: 09:34 Drug: SOLU-Medrol (methylPrednisoLONE) 125 mg Route: IVP; Site: left antecubital; kg 10:00 Follow up: Response: No adverse reaction kg 09:34 Drug: TORadol - (ketorolac) 15 mg Route: IVP; Site: left antecubital; kg 10:00 Follow up: Response: No adverse reaction kg 09:34 Drug: [place] (HYDROcodone-acetaminophen) (7.5 mg-325 mg) 1 tabs Route: PO; kg 10:00 Follow up: Response: No adverse reaction; Pain is unchanged, physician notified kg 10:47 Drug: Robaxin (methocarbamol) 1 grams Route: IVPB; Infused Over: 1 hrs; Site: right kg forearm; 11:15 Follow up: IV Status: Completed infusion; IV Intake: 100ml kg Intake: 11:15 IV: 100ml; Total: 100ml. kg Outcome: 12:01 Discharge ordered by . kdr 12:12 Discharged to home ambulatory. kg 12:12 Condition: good 12:12 Discharge instructions given to patient, family, significant other, Instructed on discharge instructions, follow up and referral plans. Demonstrated understanding of instructions, follow-up care, medications, Prescriptions given X 4. 12:13 Patient left the ED. kg Signatures: Dispatcher [employer] EDMS Shantanu Etienne MD MD [facility] Mitchell, Becki mr BoydMichelle [facility] Renu Natarajan RN RN kg
[2021-02-13 12:18] VITALS: TEMP 98.7
[2021-02-13 12:24] VITALS: O2SAT 95
[2021-02-13 12:26] VITALS: BP 159/84
== END 2021-02-13 12:13 | disposition home or self-care (01) ==
LOC: ER 08:13
DX: M25.521 Pain in right elbow (principal)
CPT/HCPCS: 96365; 73080; 96375; 99284; J2930; J2800

== ENCOUNTER 2023-05-22 09:49 | Emergency (ER) | payer OTHER ==
[2023-05-22 10:20] LABS: Absolute Lymphocytes (CBC) 12.8 K/uL (0.7-4.9); Hematocrit 42.5 % (39.6-49.0); Lymphocytes % 69.9 % (15.3-44.8); MCV 90.6 fL (80-100); MPV 6.1 fL (7.6-11.3); Platelets 208 thou/uL (152-406)
--- NOTE | 2023-05-22 10:33 | RAD REPORT ---
EXAM DESCRIPTION: Sobeida Single View05/22/2023 10:20 am CLINICAL HISTORY: Chest pain COMPARISON: 2018 FINDINGS: The lungs appear clear of acute infiltrate. The heart is normal size IMPRESSION: No acute abnormalities displayed
[2023-05-22 10:37] LABS: Potassium 3.7 mEq/L (3.5-5.1)
[2023-05-22] MEDS ORDERED: METOPROLOL TAR 50 MG TAB ONE (10:41)
[2023-05-22] MEDS ORDERED: ASPIRIN 81 MG CHEWABLE TABLET ONE (10:41)
[2023-05-22] MEDS ORDERED: NA CHLORIDE 0.9% 1,000 ML ONE (10:41)
[2023-05-22 10:45] LABS: Troponin High Sensitivity 91.9 pg/mL (<58.9)
--- NOTE | 2023-05-22 11:12 | ER ---
Nurse's Notes [facility] Name: Oskar Gomez Age: 72 yrs Sex: Male : 1950 Arrival Date: 05/22/2023 Time: 09:49 Bed 5 Private MD: Diagnosis: Unstable angina;Non ST elevation [place];Chronic lymphocytic leukemia of B-cell type-in remission;Pain in left shoulder-acute/chronic Presentation: 05/22 09:59 Chief complaint: Left arm pain x 2 days. Denies CP/SOB/injury. Coronavirus screen: At this time, the client does not indicate any symptoms associated with coronavirus-19. Ebola Screen: No symptoms or risks identified at this time. Initial Sepsis Screen: Does the patient meet any 2 criteria? No. Patient's initial sepsis screen is negative. Does the patient have a suspected source of infection? No. Patient's initial sepsis screen is negative. Risk Assessment: Do you want to hurt yourself or someone else? Patient reports no desire to harm self or others. Onset of symptoms was May 21, 2023. 09:59 Method Of Arrival: Ambulatory 09:59 Acuity: MARIANA 3 hb Historical: - Allergies: 10:01 No Known Allergies; hb - Home Meds: 10:01 None [Active]; hb - PMHx: 10:01 Chromic Lymphocytic Leukemia; hep c in remission; hb - PSHx: 10:01 Back; Shoulder - Bilateral; hb - Immunization history:: Adult Immunizations up to date. - Social history:: Smoking status: Patient denies any tobacco usage or history of. Screenin:11 [facility] ED Fall Risk Assessment (Adult) History of falling in the last 3 months, kc6 including since admission No falls in past 3 months (0 pts) Confusion or Disorientation No (0 pts) Intoxicated or Sedated No (0 pts) Impaired Gait No (0 pts) Mobility Assist Device Used No (0 pt) Altered Elimination No (0 pt) Score/Fall Risk Level 0 - 2 = Low Risk. Abuse screen: Denies threats or abuse. Denies injuries from another. Nutritional screening: No deficits noted. Tuberculosis screening: No symptoms or risk factors identified. Assessment: 10:20 General: Appears in no apparent distress. uncomfortable, Behavior is calm, cooperative, kc6 appropriate for age. Pain: Complains of pain in left arm Pain does not radiate. Pain currently is 8 out of 10 on a pain scale. Pain began 2-3 days ago. Is continuous. Neuro: Level of Consciousness is awake, alert, obeys commands, Oriented to person, place, time, situation, Appropriate for age. Cardiovascular: Denies chest pain, Heart tones S1 S2 present Capillary refill < 3 seconds Rhythm is sinus rhythm. Respiratory: Airway is patent Trachea midline Respiratory effort is even, unlabored, Respiratory pattern is regular, symmetrical, Breath sounds are clear bilaterally. Denies shortness of breath. GI: No signs and/or symptoms were reported involving the gastrointestinal system. : No signs and/or symptoms were reported regarding the genitourinary system. EENT: No signs and/or symptoms were reported regarding the EENT system. Derm: No signs and/or symptoms reported regarding the dermatologic system. Skin is intact, is healthy with good turgor, Skin is pink, warm \T\ dry. Musculoskeletal: No signs and/or symptoms reported regarding the musculoskeletal system. Circulation, motion, and sensation intact. Capillary refill < 3 seconds, Range of motion: intact in all extremities. 11:20 Reassessment: Patient appears in no apparent distress at this time. No changes from kc6 previously documented assessment. Patient and/or family updated on plan of care and expected duration. Pain level reassessed. Patient is alert, oriented x 3, equal unlabored respirations, skin warm/dry/pink. 12:20 Reassessment: Patient appears in no apparent distress at this time. No changes from kc6 previously documented assessment. Patient and/or family updated on plan of care and expected duration. Pain level reassessed. Patient is alert, oriented x 3, equal unlabored respirations, skin warm/dry/pink. Vital Signs: 09:59 BP 183 / 99; Pulse 70; Resp 16; Temp 98.4; Pulse Ox 97% on R/A; Weight 79.38 kg; Height hb 5 ft. 8 in. ; Pain 8/10; 10:35 BP 160 / 85; Pulse 62; Resp 14 S; Pulse Ox 97% on R/A; kc6 11:47 BP 171 / 92; Pulse 54; Resp 16 S; Pulse Ox 97% on R/A; kc6 09:59 Body Mass Index 26.61 (79.38 kg, 172.72 cm) hb 09:59 Pain Scale: Adult hb ED Course: 09:51 Patient arrived in ED. im 09:54 Lesli Burris, RN is Primary Nurse. kc6 10:01 Triage completed. hb 10:02 Arm band placed on. hb 10:11 Missed attempt(s): 20 gauge in right wrist. Inserted saline lock: 20 gauge in right kc6 antecubital area, using aseptic technique. Blood collected. Patient maintains SpO2 saturation greater than 95% on room air. 10:12 Patient has correct armband on for positive identification. Placed in gown. Bed in low kc6 position. Call light in reach. Side rails up X 1. Adult w/ patient. Client placed on continuous cardiac and pulse oximetry monitoring. NIBP monitoring applied. satellite project site monitor on. 10:22 XRAY Chest (1 view) In Process Unspecified. EDMS 10:24 Bebo Daniels MD is Attending Physician. laura 10:[address] daniels, to [facility]. bd 11:12 Inserted saline lock: 20 gauge in left antecubital area, using aseptic technique. kc6 11:33 pt accepted in transfer to [facility] by dr moreno. admin approval given by christiane castellano. 12:56 No provider procedures requiring assistance completed. Patient transferred, IV remains kc6 in place. Administered Medications: 10:35 Drug: Aspirin PO Chewable Tablet 324 mg Route: PO; kc6 11:19 Follow up: Response: No adverse reaction kc6 10:35 Drug: Metoprolol PO 50 mg Route: PO; kc6 11:19 Follow up: Response: No adverse reaction; Blood pressure is lowered kc6 10:35 Drug: NS 0.9% IV 1000 ml Route: IV; Rate: 125 ml/hr; Site: right antecubital; kc6 11:49 Follow up: Response: No adverse reaction; IV Status: Infusion continued upon transfer kc6 11:42 Drug: Clopidogrel PO 300 mg Route: PO; kc6 12:58 Follow up: Response: No adverse reaction kc6 11:42 Drug: morphine IVP or IV 4 mg Route: IVP; Infused Over: 4 mins; Site: left antecubital; kc6 12:58 Follow up: Response: No adverse reaction; Pain is decreased; RASS: Alert and Calm (0) kc6 11:42 Drug: Ondansetron IVP 4 mg Route: IVP; Site: left antecubital; kc6 12:57 Follow up: Response: No adverse reaction kc6 11:42 Drug: Atorvastatin PO 40 mg Route: PO; kc6 12:57 Follow up: Response: No adverse reaction kc6 11:43 Drug: Famotidine IVP 20 mg Route: IVP; Site: left antecubital; kc6 12:57 Follow up: Response: No adverse reaction kc6 11:43 Drug: Heparin (TX-Bolus No thrombolytic) - HEParin IVP 60 units/kg {Co-Signature: aa5 christ6 (Maria E Anand RN).} Route: IVP; Site: right antecubital; 12:57 Follow up: Response: No adverse reaction kc6 11:43 Drug: Heparin (TX Drip) - (D5W IV 500 ml, [place] [address] units) 12 units/kg/hr kc6 {Co-Signature: aa5 (Maria E Anand RN).} Route: IV; Rate: calculated rate; Site: right antecubital; 12:57 Follow up: Response: No adverse reaction; IV Status: Infusion continued upon transfer kc6 Medication: 12:57 VIS not applicable for this client. kc6 Outcome: 11:11 ER care complete, transfer ordered by MD. sanchez 12:56 Transferred by [facility] to [facility], Transfer form completed. kc6 Note: report called to SERGIO Martinez 12:56 Condition: stable 12:56 Instructed on the need for transfer. 12:58 Patient left the ED. kc6 Signatures: Dispatcher [employer] EDLakshmi Lawson Corey, MD MD cha Baxter, Heather RN Lesli Rivers RN RN kc6 Laine Lang Audri RN aa5
--- NOTE | 2023-05-22 11:12 | EDPHYS ---
Physician Documentation [facility] Name: Oskar Gomez Age: 72 yrs Sex: Male : 1950 Arrival Date: 05/22/2023 Time: 09:49 Bed 5 Private MD: Bebo Alonso HPI: 05/22 10:59 This 72 yrs old Male presents to ER via Ambulatory with complaints of High laura Blood Pressure, Arm Pain - left. 10:59 The patient has elevated blood pressure and discovered this at home. Onset: The laura symptoms/episode began/occurred gradually. Modifying factors: The symptoms are aggravated by activity, The symptoms are alleviated by remaining still. Associated signs and symptoms: Pertinent positives: chest pain. Severity of symptoms: At its worst the blood pressure was moderate, in the emergency department the blood pressure is unchanged. The patient has not experienced similar symptoms in the past. 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 - Social history:: Smoking status: Patient denies any tobacco usage or history of. ROS: 11:01 Constitutional: Negative for fever, chills, and weight loss, Eyes: Negative for injury, laura pain, redness, and discharge, ENT: Negative for injury, pain, and discharge, Neck: Negative for injury, pain, and swelling, Cardiovascular: Negative for chest pain, palpitations, and edema, Respiratory: Negative for shortness of breath, cough, wheezing, and pleuritic chest pain, Abdomen/GI: Negative for abdominal pain, nausea, vomiting, diarrhea, and constipation, Back: Negative for injury and pain, : Negative for injury, bleeding, discharge, and swelling, Skin: Negative for injury, rash, and discoloration, Neuro: Negative for headache, weakness, numbness, tingling, and seizure, Psych: Negative for depression, anxiety, suicide ideation, homicidal ideation, and hallucinations, Allergy/Immunology: Negative for hives, rash, and allergies, Endocrine: Negative for neck swelling, polydipsia, polyuria, polyphagia, and marked weight changes, Hematologic/Lymphatic: Negative for swollen nodes, abnormal bleeding, and unusual bruising. 11:01 MS/extremity: Positive for decreased range of motion, pain, of the anterior aspect of left shoulder and posterior aspect of left shoulder. Exam: 11:01 Constitutional: This is a well developed, well nourished patient who is awake, alert, laura and in no acute distress. Head/Face: Normocephalic, atraumatic. Eyes: Pupils equal round and reactive to light, extra-ocular motions intact. Lids and lashes normal. Conjunctiva and sclera are non-icteric and not injected. Cornea within normal limits. Periorbital areas with no swelling, redness, or edema. ENT: Nares patent. No nasal discharge, no septal abnormalities noted. Tympanic membranes are normal and external auditory canals are clear. Oropharynx with no redness, swelling, or masses, exudates, or evidence of obstruction, uvula midline. Mucous membranes moist. Neck: Trachea midline, no thyromegaly or masses palpated, and no cervical lymphadenopathy. Supple, full range of motion without nuchal rigidity, or vertebral point tenderness. No Meningismus. Chest/axilla: Normal chest wall appearance and motion. Nontender with no deformity. No lesions are appreciated. Cardiovascular: Regular rate and rhythm with a normal S1 and S2. No gallops, murmurs, or rubs. Normal PMI, no JVD. No pulse deficits. Respiratory: Lungs have equal breath sounds bilaterally, clear to auscultation and percussion. No rales, rhonchi or wheezes noted. No increased work of breathing, no retractions or nasal flaring. Abdomen/GI: Soft, non-tender, with normal bowel sounds. No distension or tympany. No guarding or rebound. No evidence of tenderness throughout. Back: No spinal tenderness. No costovertebral tenderness. Full range of motion. Male : Normal genitalia with no discharge or lesions. Skin: Warm, dry with normal turgor. Normal color with no rashes, no lesions, and no evidence of cellulitis. Neuro: Awake and alert, GCS 15, oriented to person, place, time, and situation. Cranial nerves II-XII grossly intact. Motor strength 5/5 in all extremities. Sensory grossly intact. Cerebellar exam normal. Normal gait. Psych: Awake, alert, with orientation to person, place and time. Behavior, mood, and affect are within normal limits. 11:01 Musculoskeletal/extremity: ROM: limited active range of motion, limited passive range of motion, in the left arm, Circulation is intact in all extremities. Sensation intact. Compartment Syndrome exam of affected extremity: is normal. DVT Exam: No signs of deep vein thrombosis. no pain, no swelling, no tenderness, negative Homans' sign noted on exam, no appreciated bluish discoloration, no erythema, no increased warmth. 11:16 ECG was reviewed by the Attending Physician. laura Vital Signs: 09:59 BP 183 / 99; Pulse 70; Resp 16; Temp 98.4; Pulse Ox 97% on R/A; Weight 79.38 kg; Height hb 5 ft. 8 in. ; Pain 8/10; 10:35 BP 160 / 85; Pulse 62; Resp 14 S; Pulse Ox 97% on R/A; kc6 11:47 BP 171 / 92; Pulse 54; Resp 16 S; Pulse Ox 97% on R/A; kc6 09:59 Body Mass Index 26.61 (79.38 kg, 172.72 cm) hb 09:59 Pain Scale: Adult hb MDM: 10:24 Patient medically screened. laura 11:11 Differential diagnosis: contusion, tendonitis, abnormal EKG, acute myocardial laura infarction, acute pericarditis, anxiety, coronary artery disease chest wall pain, congestive heart failure Cholelithiasis costochondritis, hypertensive crisis, Malignant HTN, esophagitis. HEART Score: History: Moderately Suspicious (1), ECG: Non specific repolarization disturbance / LBTB / PM (1), Age: > or = 65 years (2), Risk Factors: > or = 3 Risk factors for atherosclerotic disease (2), [Hypertension] [+ Family HX] [Obesity]. The patient was given aspirin in the Emergency Department. M[place] Risk Score: 1 - patient's age is greater or equal to 65 years, 1 - Three or more CAD risk factors, TOTAL SCORE = 2. Data reviewed: vital signs, nurses notes, lab test result(s), EKG, radiologic studies. Consideration of Admission/Observation Escalation of care including admission/observation considered. I considered the following discharge prescriptions or medication management in the emergency department Medications were administered in the Emergency Department. See MAR. Independent interpretation of the following test(s) in the Emergency Department EKG: See my EKG interpretation above. Test considered but Not performed: CT: no ct chest. Historians other than the Patient: Family Member: , informed. Care significantly affected by the following chronic conditions: Hypertension, Cancer. 05/22 10:11 Order name: Basic Metabolic Panel; Complete Time: 10:54 [facility] 05/22 10:11 Order name: CBC with Diff; Complete Time: 11:45 [facility] 05/22 10:11 Order name: Troponin HS; Complete Time: 10:54 [facility] 05/22 10:25 Order name: Lipase; Complete Time: 10:54 [facility] 05/22 10:25 Order name: Urinalysis w/ reflexes [facility] 05/22 10:57 Order name: Lipid Profile; Complete Time: 11:45 [facility] 05/22 11:44 Order name: Manual Differential; Complete Time: 11:45 EDMS 05/22 10:11 Order name: XRAY Chest (1 view); Complete Time: 10:54 [facility] 05/22 10:11 Order name: EKG; Complete Time: 10:11 [facility] 05/22 10:11 Order name: Cardiac monitoring; Complete Time: 10:11 [facility] 05/22 10:11 Order name: EKG - Nurse/Tech; Complete Time: 10:11 [facility] 05/22 10:11 Order name: IV Saline Lock; Complete Time: 10:11 [facility] 05/22 10:11 Order name: Labs collected and sent; Complete Time: 10:11 [facility] 05/22 10:11 Order name: O2 Per Protocol; Complete Time: 10:11 [facility] 05/22 10:11 Order name: O2 Sat Monitoring; Complete Time: 10:11 [facility] 05/22 12:17 Order name: NPO; Complete Time: 12:17 [facility] EC:16 Rate is 65 beats/min. Rhythm is regular. QRS [place] is Normal. CA interval is normal. QRS laura interval is normal. QT interval is normal. No Q waves. T waves are Normal. No ST changes noted. Clinical impression: NSR w/ Non-specific ST/T Changes and No evidence of ischemia. Interpreted by me. Reviewed by me. Administered Medications: 10:35 Drug: Aspirin PO Chewable Tablet 324 mg Route: PO; 6 11:19 Follow up: Response: No adverse reaction [facility] 10:35 Drug: Metoprolol PO 50 mg Route: PO; kc6 11:19 Follow up: Response: No adverse reaction; Blood pressure is lowered kc6 10:35 Drug: NS 0.9% IV 1000 ml Route: IV; Rate: 125 ml/hr; Site: right antecubital; kc6 11:49 Follow up: Response: No adverse reaction; IV Status: Infusion continued upon transfer kc6 11:42 Drug: Clopidogrel PO 300 mg Route: PO; kc6 12:58 Follow up: Response: No adverse reaction kc6 11:42 Drug: morphine IVP or IV 4 mg Route: IVP; Infused Over: 4 mins; Site: left antecubital; kc6 12:58 Follow up: Response: No adverse reaction; Pain is decreased; RASS: Alert and Calm (0) kc6 11:42 Drug: Ondansetron IVP 4 mg Route: IVP; Site: left antecubital; kc6 12:57 Follow up: Response: No adverse reaction kc6 11:42 Drug: Atorvastatin PO 40 mg Route: PO; kc6 12:57 Follow up: Response: No adverse reaction kc6 11:43 Drug: Famotidine IVP 20 mg Route: IVP; Site: left antecubital; kc6 12:57 Follow up: Response: No adverse reaction kc6 11:43 Drug: Heparin (IL-Bolus No thrombolytic) - HEParin IVP 60 units/kg {Co-Signature: aa5 marcelo (Maria E Anand RN).} Route: IVP; Site: right antecubital; 12:57 Follow up: Response: No adverse reaction kc6 11:43 Drug: Heparin ([place] Drip) - (D5W IV 500 ml, [place] [address] units) 12 units/kg/hr kc6 {Co-Signature: aa5 (Maria E Anand RN).} Route: IV; Rate: calculated rate; Site: right antecubital; 12:57 Follow up: Response: No adverse reaction; IV Status: Infusion continued upon transfer kc6 Disposition: 11:17 Critical Care:. laura Disposition Summary: 05/22/23 11:11 Transfer Ordered Transfer Location: [facility] laura Reason: Higher level of care laura Condition: Stable laura Problem: new laura Symptoms: have improved laura Accepting Physician: to cardio,ccu(05/22/23 12:58) kc6 Diagnosis - Unstable angina laura - Non ST elevation [place] laura - Chronic lymphocytic leukemia of B-cell type - in remission laura - Pain in left shoulder - acute/chronic laura Forms: - Medication Reconciliation Form laura - SBAR form laura Critical care time excluding procedures: 11:17 Critical care time: Bedside Care: 20 minutes, Consultation: 10 minutes, Family laura Intervention: 10 minutes. Total time: 40 minutes Signatures: Dispatcher [employer] EDMS Lakshmi Moser Corey, MD MD cha Baxter, Heather, RN RN Lesli Burris RN RN kc6 Maria E Anand RN aa5 Corrections: (The following items were deleted from the chart) 11:43 11:43 CBC Smear Scan ordered. EDMS EDMS 11:46 11:11 to cardio,ccu [facility] 11:47 11:40 Labs - recollect needed ordered. bd kc6 12:48 11:46 to cardio,ccu [facility] 12:58 12:48 to cardio,ccu [facility] kc6
[2023-05-22] MEDS ORDERED: FAMOTIDINE 20 MG/2 ML VIAL IV ONE ×2 (11:18→11:27)
[2023-05-22] MEDS ORDERED: CLOPIDOGREL 75 MG TABLET ONE (11:26)
[2023-05-22] MEDS ORDERED: MORPHINE 4 MG/ML SYR ONE (11:26)
[2023-05-22] MEDS ORDERED: HEPARIN 5000 UNIT/ML 1 ML VIAL ONE (11:26)
[2023-05-22] MEDS ORDERED: ONDANSETRON 4 MG/2 ML VIAL ONE (11:27)
[2023-05-22] MEDS ORDERED: ATORVASTATIN 40 MG TAB ONE (11:27)
[2023-05-22] MEDS ORDERED: HEPARIN/D5W 25,000 UNIT/500 ML BAG IV ONE (11:27)
[2023-05-22 11:43] LABS: Blood Morphology Comment NOT SEEN (NOT SEEN); Platelet Estimate ADEQ
[2023-05-22 11:50] LABS: Urine Bilirubin NEGATIVE (Negative); Urine Blood Negative (Negative); Urine Clarity Clear (Clear); Urine Color Light-Yellow (Yellow); Urine Glucose NEGATIVE (Negative); Urine Protein NEGATIVE (Negative); Urine Urobilinogen Normal (Normal)
[2023-05-22 13:14] VITALS: TEMP 98.4; O2SAT 97
[2023-05-22 13:25] VITALS: BP 171/92
--- NOTE | 2023-05-24 19:09 | EKG ---
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
== END 2023-05-22 12:58 | disposition short-term general hospital (02) ==
LOC: ER 09:49
DX: I21.4 Non-ST elevation (NSTEMI) myocardial infarction (principal); C91.11 Chronic lymphocytic leukemia of B-cell type in remission; M25.512 Pain in left shoulder
CPT/HCPCS: 93005; 85025; 80048; 36415; 80061; 81003; 84484; 83690; 71045; 99285; J1644; J2405; J7030

== ENCOUNTER 2023-05-26 11:50 | Emergency (ER) | payer OTHER ==
--- OUTSIDE RECORDS SUMMARY | 2023-05-26 11:55 | XMS REPORT | Continuity of Care Document ---
:1950 Author Organization [facility] t Address [address] [facility] [address] [place] [address] Care Team Providers Name Role Phone RUSSEL HINDS Attending Clinician Unavailable Cesar GAYLE, Russel Attending Clinician Unavailable Manuel Ramos MD Attending Clinician MANUEL RAMOS Attending Clinician Unavailable RUSSEL HINSD Attending Clinician Unavailable RUSSEL HINDS Admitting Clinician Unavailable Payers Payer Name Policy Type Policy Number Effective Date Expiration Date S ource [employer] MEDICARE [id number] 2019 ADV 00:00:00 HUMANA [place] 5 [id number] 2023 00:00:00 Problems Condition Condition Condition Status Onset Resolution Last Treating Co mments Source Name Details Category Date Date Treatment Clinician Date Chest pain Chest pain Disease [facility] Allergies, Adverse Reactions, Alerts Allergy Allergy Status Severity Reaction(s) Onset Inactive Treating Comm ents Source Name Type Date Date Clinician NO KNOWN Allergy Active [facility] Social History Social Habit Start Date Stop Date Quantity Comments Source History [facility] Exposure to 2023-05-13 2023-05-[address] Outcome Referrals SARS-CoV-2 (event) 00:00:00 05:24:00 Medica l Center History SDOH 2023-05-23 2023-05-[address] [facility] Med 00:00:00 00:00:[address] History SDOH Housing 2023-05-23 2023-05-[address] LuOutcome Referrals Unable to Pay 00:00:00 00:00:[address] History [facility] Housing 2023-05-23 2023-05-23 1 [facility] Places Lived 00:00:00 00:00:00 Medical Cent er History [facility] Housing 2023-05-23 2023-05-23 2 [place] Rosales Homeless Last Year 00:00:00 00:00:00 Medica l Center Sex Assigned At [address] Karyna kes 00:00:00 00:00:00 Medical Center Medications Ordered Filled Start Stop Current Ordering Indication Dosage Frequency Signature Comments Components Source Medication Medication Date Date Medication? Clinician (SIG) Name Name aspirin 81 2023- Yes 81mg QD Take [address] MG chewable 05-24 tablet (81 L ukes tablet 00:00: 23:59 mg total) Medic al 00 :00 by mouth Center daily. multivitami Yes 1{tbl} QD Take [address] n per 05-23 tablet by [facility] tablet 11:59: mouth Medical 53 daily. Center atorvastati 2023- Yes 40mg QD Take [address] n (LIPITOR) 05-23 tablet (40 L ukes 40 MG 00:00: 23:59 mg total) Medica l tablet 00 :00 by mouth Center daily. HYDROcodone 2022- Yes 1{tbl} Take [address] -acetaminop 05-23 tablet by Karyna kes hen (NORCO 00:00: 23:59 mouth Medic al 5-325) 00 :00 every 6 Center 5-325 mg (six) per tablet hours as needed for Pain for up to 5 days. Max Daily Amount: 4 tablets tadalafiL Yes 20mg Take [address] (CIALIS) 20 -07 tablet (20 Karyna kes MG tablet 00:00: mg total) Med ical 00 by mouth Center as needed. Vital Signs Vital Name Observation Time Observation Value Comments Source WEIGHT 2023-05-23 08:00:00 80.151 kg WEIGHT 2023-05-22 14:15:00 78.9 kg HEIGHT 2023-05-22 14:15:00 172.7 cm WEIGHT 2023-05-23 08:00:00 80.151 kg WEIGHT 2023-05-22 14:15:00 78.9 kg HEIGHT 2023-05-22 14:15:00 172.7 cm WEIGHT 2023-05-23 08:00:00 80.151 kg WEIGHT 2023-05-22 14:15:00 78.9 kg HEIGHT 2023-05-22 14:15:00 172.7 cm Systolic blood 2023-05-23 11:24:00 144 mm[Hg] [facility] Diastolic blood 2023-05-23 11:24:00 77 mm[Hg] [facility] Heart rate 2023-05-23 11:24:00 60 /min [facility] Body temperature 2023-05-23 11:24:00 36.72 Ling [facility] Respiratory rate 2023-05-23 11:24:00 16 /min [facility] Oxygen saturation in 2023-05-23 11:24:00 95 /min [facility] Arterial blood by Medical Ce nter Pulse oximetry Body weight 2023-05-23 08:00:00 80.151 kg [facility] BMI 2023-05-23 08:00:00 26.87 kg/m2 [facility] Body height 2023-05-22 14:15:00 172.7 cm [facility] Procedures Procedure Date / Time Performed Performing Clinician [facility] e CBC (HEMOGRAM ONLY) 2023-05-23 05:11:00 Manuel Ramos [facility] BASIC METABOLIC PANEL 2023-05-23 05:11:00 Manuel Ramos [facility] MAGNESIUM 2023-05-23 05:11:00 Manuel Ramos [facility] POCT-GLUCOSE METER 2023-05-22 21:55:00 [facility] ECHO W CONTRAST & DOPPLER 2023-05-22 19:02:43 Russel Hinds [facility] APTT 2023-05-22 17:41:00 Cesar [facility] COMPREHENSIVE METABOLIC 2023-05-22 16:27:[address] [facility] PHOSPHORUS 2023-05-22 16:27:00 [facility] MAGNESIUM 2023-05-22 16:27:00 [facility] CBC W/PLT COUNT & AUTO 2023-05-22 16:27:00 [facility] S [facility] LIPID PANEL 2023-05-22 16:27:00 [facility] HEMOGLOBIN A1C 2023-05-22 16:27:00 [facility] TSH/FREE T4 IF INDICATED 2023-05-22 16:27:00 [facility] B-TYPE NATRIURETIC FACTOR 2023-05-22 16:27:00 [facility] (BNP) [facility] HIGH SENSITIVITY TROPONIN 2023-05-22 16:27:00 [facility] PROTHROMBIN TIME/INR 2023-05-22 16:27:00 [facility] CBC W/PLT COUNT & AUTO 2023-05-22 16:27:[address] [facility] (CELLAVISION MANUAL DIFF) 2023-05-22 16:27:00 Delgado Tinoco [facility] ECG 12-LEAD 2023-05-22 16:19:20 [facility] CARDIAC CATH REPORT - 2023-05-22 00:00:00 Provider, Earlene [facility] SCAN Scanning [facility] EKG-SCANNED 2023-05-22 00:00:00 Provider, Default [facility] Plan of Care Planned Activity Planned Date Details Comments Source Future Scheduled 2023-05-07 Influenza Vaccine (#1) [facility] 00:00[facility]00 [code = Influenza Medical Ce nter Vaccine (#1)] Future Scheduled 2022-09-[address] [facility] 00:00:00 (12+) [code = Medical Center DEPRESSION SCREENING (12+)] Future Scheduled 2022-09-06 FALLS RISK SCREENING [facility] Test 00:00:00 [code = FALLS RISK Medical C enter SCREENING] Future Scheduled [address] [facility] Test 00:00:00 WELLNESS (YEAR 2 or Medical Center FIRST YEAR if no IPPE) [code = MEDICARE ANNUAL WELLNESS (YEAR 2 or FIRST YEAR if no IPPE)] Future Scheduled 1971 DTAP/TDAP/TD VACCINES [facility] 00:00:00 (1 - Tdap) [code = Medical C enter DTAP/TDAP/TD VACCINES (1 - Tdap)] Future Scheduled 1971 SHINGLES VACCINES ([address] [facility] Test 00:00:00 2) [code = SHINGLES Medical Center VACCINES (1 of 2)] Future Scheduled 1970 HEPATITIS C SCREENING [facility] 00:00:00 [code = HEPATITIS C Medical Center SCREENING] Future Scheduled [address] [facility] Test 00:00:00 Counseling and Medical Cente r Screening (12+) [code = Tobacco Cessation Counseling and Screening (12+)] Future Scheduled 1958 PNEUMOCOCCAL 65+ YRS ([address] [facility] Test 00:00:00 - PCV) [code = Medical Cente r PNEUMOCOCCAL 65+ YRS (1 - PCV)] Future Scheduled 1953[birth year]03[birth year]07 COVID-19 VACCINE (#1) [facility] 00:00:00 [code = COVID-[address] VACCINE (#1)] Future Scheduled 1952 Screening for malignant [facility] Test 00:00:00 neoplasm of colon Medical Ce nter (procedure) [code = 739562432] Future Scheduled 1952 Screening for malignant [facility] Test 00:00:00 neoplasm of colon Medical Ce nter (procedure) [code = 702648231] Future Scheduled 1952 Screening for malignant [facility] Test 00:00:00 neoplasm of colon Medical Ce nter (procedure) [code = 402447428] Future Scheduled 1950 Sigmoidoscopy [code = [facility] 00:00:00 Sigmoidoscopy] Medical Cente r Future Scheduled 1952 CT Colonography (combo) [facility] Test 00:00:00 [code = CT Colonography [facility] (combo)] Future Scheduled 1952 Screening for malignant [facility] Test 00:00:00 neoplasm of colon Medical Ce nter (procedure) [code = 835344783] Encounters Start End Encounter Admission Attending Care Care Encounter Source Date/Time Date/Time Type Type Clinicians Facility Department ID 2023-05-22 Inpatient ER [facility] [id number] [facility] 16:01:29 [facility] 2023-05-22 Inpatient [facility] [id number] [facility] 15:45:49 [facility] 2023-05-22 2023-05-23 [facility] [id number] 13:45:00 11:59:00 Encounter Manuel Ramos [facility] 2023-05-22 2023-05-23 Inpatient ER [facility] [id number] [facility] 13:45:00 11:59:00 [facility] 2023-05-23 2023-05-[address] [facility] [id number] [facility] 00:00:00 [facility] 2023-05-22 2023-05-22 Surgery [facility], [facility] [id number] 17:20:00 19:05:00 [facility] 2023-05-22 2023-05-22 Outpatient DEANA HINDS [id number] Deana 00:00:00 00:00:00 [facility] Sabrina petit Results Test Description Test Time Test Comments Results Result Comments Source HEMOGLOBIN A1C 2023-05-23 09:54:27 Test Item Value Reference Range Interpretation Comme nts HEMOGLOBIN A1C ELECTROPHORESIS 5.4 % See_Comment [Automated message] The system (MAGGY) (test code = 3811) which generated this result transmitted ref erence range: <=5.6%. The ref erence range was not used to int erpret this result as normal/abnor mal. "The A1c is measured using a NGSP-certified method. HbA1c value equal to or greater than 6.5% as thediagnosis cutoff for diabetes. An HbA1c value of 5.7- 6.4% indicates increased risk for diabetes (prediabetes)."Health Concierge ID - ADMBASIC METABOLIC [id number] 05:39:53 Test Item Value Reference Range Interpretation Comments SODIUM (BEAKER) 137 meq/L 136-145 (test code = 381) POTASSIUM 4.0 meq/L 3.5-5.1 (BEAKER) (test code = 379) CHLORIDE (BEAKER) 105 meq/L 98-107 (test code = 382) CO2 (BEAKER) 24 meq/L 22-29 (test code = 355) BLOOD UREA 16 mg/dL 7-21 NITROGEN (BEAKER) (test code = 354) CREATININE 0.90 mg/dL 0.57-1.25 (BEAKER) (test code = 358) GLUCOSE RANDOM 116 mg/dL 70-105 H (BEAKER) (test code = 652) CALCIUM (BEAKER) 8.6 mg/dL 8.4-10.2 (test code = 697) EGFR (BEAKER) 93 Interpretatio n of eGFR (test code = mL/min/1.73 values Stage De scription 1092) sq m Result G1 Snehal l or high >=90 G2 Mildly decreased 60-89 G3a Mildl y to moderately 45-5 9 G3b Moderately to s everely 30-44 G4 Severl y decreased 15-29 G5 Kidne y failure <15Reported eGF R is based on the CKD-EPI 2020 equation that d oes not use a race coefficientEsti mated GFR is not as accur ate as Creatinine Rosangela thacker in predicting glom erular filtration rate . Estimated GFR is not appl icable for dialysis patien ts Health Concierge ID - [id number] 05:39:53 Test Item Value Reference Range Interpretation Comments MAGNESIUM (BEAKER) (test code = 2.1 mg/dL 1.6-2.6 627) Health Concierge ID - ADMINCBC (HEMOGRAM ONLY)2023-05-23 05:28:33 Test Item Value Reference Range Interpretation Comments WHITE BLOOD CELL COUNT (BEAKER) 16.7 K/ L 3.5-10.5 H (test code = 775) RED BLOOD CELL COUNT (BEAKER) 4.18 M/ L 4.63-6.08 L (test code = 761) HEMOGLOBIN (BEAKER) (test code = 12.7 GM/DL 13.7-17.5 L 410) HEMATOCRIT (BEAKER) (test code = 37.7 % 40.1-51.0 L 411) MEAN CORPUSCULAR VOLUME (BEAKER) 90 fL 79-92 (test code = 753) MEAN CORPUSCULAR HEMOGLOBIN 30.4 pg 25.7-32.2 (BEAKER) (test code = 751) MEAN CORPUSCULAR HEMOGLOBIN CONC 33.7 GM/DL 32.3-36.5 (BEAKER) (test code = 752) RED CELL DISTRIBUTION WIDTH 13.6 % 11.6-14.4 (BEAKER) (test code = 412) PLATELET COUNT (BEAKER) (test 160 K/CU MM 150-450 code = 756) MEAN PLATELET VOLUME (BEAKER) 8.5 fL 9.4-12.4 L (test code = 754) NUCLEATED RED BLOOD CELLS 0 /100 WBC 0-0 (BEAKER) (test code = 413) POC-Glucose [id number] 22:06:58 Test Item Value Reference Range Interpretation Comments POC-Glucose Meter (test 117 mg/dL 70-110 H : TE STED AT [facility] code = 1538) [address] [facility], 770 30: Health Concierge/Techni brent ID = [id number] for MIGUEL ORTEGA Lab Interpretation (test Abnormal code = 57261-4) [facility] [id number] 22:06:58 Test Item Value Reference Range Interpretation Comments POC-GLUCOSE METER 117 mg/dL 70-110 H : TESTED A T [facility] 6720 (BEAKER) (test code = GABRIELLA Hatch [facility], 1538) [address]: Health Concierge/Techni brent ID = [id number] for PI MIGUEL BEEBE [id number] 18:27:33 Test Item Value Reference Range Interpretation Comments PARTIAL THROMBOPLASTIN TIME 63.5 seconds 22.5-36.0 H (BEAKER) (test code = 760) (CELLAVISION MANUAL DIFF)2023-05-22 17:29:27 Test Item Value Reference Range Interpretation Comments NEUTROPHILS - REL 41 % (CELLAVISION)(BEAKER) (test code = 2816) LYMPHOCYTES - REL 51 % (CELLAVISION)(BEAKER) (test code = 2817) MONOCYTES - REL 3 % (CELLAVISION)(BEAKER) (test code = 2818) EOSINOPHILS - REL 2 % (CELLAVISION)(BEAKER) (test code = 2819) ATYPICAL LYMPHOCYTES - REL 3 % 0-0 H (CELLAVISION)(BEAKER) (test code = 2829) NEUTROPHILS - ABS 8.49 K/ul 1.78-5.38 H (CELLAVISION)(BEAKER) (test code = 2830) LYMPHOCYTES - ABS 10.56 K/ul 1.32-3.57 H (CELLAVISION)(BEAKER) (test code = 2831) MONOCYTES - ABS 0.62 K/uL 0.30-0.82 (CELLAVISION)(BEAKER) (test code = 2832) EOSINOPHILS - ABS 0.41 K/uL 0.04-0.54 (CELLAVISION)(BEAKER) (test code = 2834) ATYPICAL LYMPHOCYTES - ABS 0.62 K/uL 0.00-0.00 H (CELLAVISION)(BEAKER) (test code = 2858) TOTAL COUNTED (BEAKER) (test code 100 = 1351) SMUDGE CELLS (BEAKER) (test code = Present 1371) GIANT PLATELETS (BEAKER) (test Present code = 313) POLYCHROMATOPHILLIC RBCS(BEAKER) 1+ few (test code = 478) ARTIFACT (CELLAVISION)(BEAKER) Present (test code = 3432) PLATELET CONCENTRATION Adequate (CELLAVISION)(BEAKER) (test code = 3438) Health Concierge ID - Nata Greenberg comments: Slide comments:TSH/FREE T4 IF [id number] 17:19:45 Test Item Value Reference Range Interpretation Comments THYROID STIMULATING HORMONE 3.600 uIU/mL 0.350-4.940 (BEAKER) (test code = 772) Health Concierge ID - ADMINB-TYPE NATRIURETIC FACTOR (BNP)2023-05-22 17:01:47 Test Item Value Reference Range Interpretation Comments B-TYPE NATRIURETIC PEPTIDE (BEAKER) 250 pg/mL 0-100 H (test code = 700) Health Concierge ID - ADMINHIGH SENSITIVITY TROPONIN [id number] 17:01:19 Test Item Value Reference Range Interpretation Comments HIGH SENSITIVITY 45 pg/ml See_Comment H [Automated message] TROPONIN I (test code = The system which [id number]) generated this result transmitted ref erence range: <=35. Th e reference range was not used to int erpret this result as normal/abnormal . Health Concierge ID - ADMINThe HARNESS WORKER STAT High Sensitivity Troponin-I results should be used in conjunction with other diagnostic information such as ECG, clinical observations and information, and patientsymptoms to aid in the diagnosis of [place]. LIPID [id number] 16:57:05 Test Item Value Reference Range Interpretation Comments TRIGLYCERIDES (BEAKER) (test code = 169 mg/dL 540) CHOLESTEROL (BEAKER) (test code = 187 mg/dL 631) HDL CHOLESTEROL (BEAKER) (test code 30 mg/dL = 976) LDL CHOLESTEROL CALCULATED (BEAKER) 123 mg/dL (test code = 633) Triglyceride Reference Range: Low Risk <150 Borderline 150-199 High Risk 200- 499 Very High Risk >=500Cholesterol Reference Range: Low Risk <200 Borderline 200-239 High Risk >240HDL Cholesterol Reference Range: Low Risk >=60 High Risk <40LDL Cholesterol Reference Range: Optimal <100 Near Optimal 100-129 Borderline 130-159 High 160-189 Very High >=190 Health Concierge ID - ADMINCOMPREHENSIVE METABOLIC [id number] 16:57:04 Test Item Value Reference Range Interpretation Comments TOTAL PROTEIN 7.0 gm/dL 6.0-8.3 (BEAKER) (test code = 770) ALBUMIN (BEAKER) 4.5 g/dL 3.5-5.0 (test code = 1145) ALKALINE 53 U/L 40-150 PHOSPHATASE (BEAKER) (test code = 346) BILIRUBIN TOTAL 0.6 mg/dL 0.2-1.2 (BEAKER) (test code = 377) SODIUM (BEAKER) 138 meq/L 136-145 (test code = 381) POTASSIUM (BEAKER) 3.8 meq/L 3.5-5.1 (test code = 379) CHLORIDE (BEAKER) 106 meq/L 98-107 (test code = 382) CO2 (BEAKER) (test 23 meq/L 22-29 code = 355) BLOOD UREA 11 mg/dL 7-21 NITROGEN (BEAKER) (test code = 354) CREATININE 0.83 mg/dL 0.57-1.25 (BEAKER) (test code = 358) GLUCOSE RANDOM 155 mg/dL 70-105 H (BEAKER) (test code = 652) CALCIUM (BEAKER) 8.3 mg/dL 8.4-10.2 L (test code = 697) AST (SGOT) 20 U/L 5-34 (BEAKER) (test code = 353) ALT (SGPT) 22 U/L 6-55 (BEAKER) (test code = 347) EGFR (BEAKER) 95 Interpretatio n of eGFR (test code = 1092) mL/min/1.[address] age Description sq m Result G1 Snehal l or high >=90 G2 Mildly decreased 60-89 G3a Mildl y to moderately 45-5 9 G3b Moderately to s everely 30-44 G4 Severl y decreased 15-29 G5 Kidney failure <15Reported eGF R is based on the CKD-EPI 2020 equation that d oes not use a race coefficientEsti mated GFR is not as accur ate as Creatinine Rosangela kirstie in predicting glom erular filtration rate . Estimated GFR is not appl icable for dialysis patien ts Health Concierge ID - [id number] 16:57:04 Test Item Value Reference Range Interpretation Comments MAGNESIUM (BEAKER) (test code = 1.9 mg/dL 1.6-2.6 627) Health Concierge ID - [id number] 16:57:04 Test Item Value Reference Range Interpretation Comments PHOSPHORUS (BEAKER) (test code = 3.2 mg/dL 2.3-4.7 604) Health Concierge ID - ADMINPROTHROMBIN [id number] 16:52:40 Test Item Value Reference Range Interpretation Comments PROTIME (BEAKER) 14.3 seconds 11.9-14.2 H (test code = 759) INR (BEAKER) (test 1.13 See_Comment [Automat ed message] code = 370) The system [employer] generated this result transmitted ref erence range: <=5.90. The reference range was not used to int erpret this result as normal/abnormal . RECOMMENDED COUMADIN/WARFARIN INR THERAPY RANGESSTANDARD DOSE: 2.0 - 3.0 Includes: PROPHYLAXIS for venous thrombosis, systemic embolization; TREATMENT for venous thrombosis and/or pulmonary embolus.HIGH RISK: Target INR is 2.5-3.5 for patients with mechanical heart valves.CBC W/PLT COUNT & AUTO [id number] 16:41:50 Test Item Value Reference Range Interpretation Comments WHITE BLOOD CELL COUNT (BEAKER) 20.7 K/ L 3.5-10.5 H (test code = 775) RED BLOOD CELL COUNT (BEAKER) 4.59 M/ L 4.63-6.08 L (test code = 761) HEMOGLOBIN (BEAKER) (test code = 13.5 GM/DL 13.7-17.5 L 410) HEMATOCRIT (BEAKER) (test code = 41.0 % 40.1-51.0 411) MEAN CORPUSCULAR VOLUME (BEAKER) 89 fL 79-92 (test code = 753) MEAN CORPUSCULAR HEMOGLOBIN 29.4 pg 25.7-32.2 (BEAKER) (test code = 751) MEAN CORPUSCULAR HEMOGLOBIN CONC 32.9 GM/DL 32.3-36.5 (BEAKER) (test code = 752) RED CELL DISTRIBUTION WIDTH 13.3 % 11.6-14.4 (BEAKER) (test code = 412) PLATELET COUNT (BEAKER) (test 169 K/CU MM 150-450 code = 756) MEAN PLATELET VOLUME (BEAKER) 8.3 fL 9.4-12.4 L (test code = 754) NUCLEATED RED BLOOD CELLS 0 /100 WBC 0-0 (BEAKER) (test code = 413)
[2023-05-26 12:35] LABS: Absolute Lymphocytes (CBC) 11.6 K/uL (0.7-4.9); Hematocrit 42.6 % (39.6-49.0); Lymphocytes % 63.5 % (15.3-44.8); MCV 90.5 fL (80-100); MPV 6.1 fL (7.6-11.3); Platelets 206 thou/uL (152-406); RBC Red Blood Cell Count 4.71 M/uL (4.33-5.43); Specific Gravity < 1.005 (1.005-1.030); Urine Bilirubin NEGATIVE (Negative); Urine Blood Negative (Negative); Urine Clarity Clear (Clear); Urine Color Colorless (Yellow); Urine Glucose NEGATIVE (Negative); Urine Protein NEGATIVE (Negative); Urine Urobilinogen Normal (Normal); Urine pH 6.5 (5.0-7.0)
[2023-05-26 12:52] LABS: Magnesium 2.3 mg/dL (1.6-2.4); Potassium 3.6 mEq/L (3.5-5.1)
[2023-05-26 12:54] LABS: Troponin High Sensitivity 77.9 pg/mL (<58.9)
[2023-05-26 13:22] LABS: Blood Morphology Comment NOT SEEN (NOT SEEN); Platelet Estimate ADEQ
--- NOTE | 2023-05-26 15:10 | RAD REPORT ---
EXAM DESCRIPTION: VINNYChest Single View05/26/2023 2:52 pm CLINICAL HISTORY: CHEST PAIN COMPARISON: Chest Single View dated 05/22/2023; Chest Pa And Lat (2 Views) dated 12/02/2018; Chest Pa And Lat (2 Views) dated 11/29/2018; Chest Single View dated 04/05/2018 TECHNIQUE: Portable AP view of the chest. FINDINGS: The lungs are clear. No pneumothorax or effusion. The cardiomediastinal contours are unre markable. IMPRESSION: No acute cardiopulmonary process.
--- NOTE | 2023-05-26 15:38 | ER ---
Nurse's Notes [facility] Name: Oskar Gomez Age: 72 yrs Sex: Male : 1950 Arrival Date: 05/26/2023 Time: 11:50 Bed 15 Private MD: Diagnosis: Essential (primary) hypertension;Elevated white blood cell count, unspecified Presentation: 05/26 12:05 Chief complaint: Patient states: High blood pressure readings this morning, 190s ph systolic [employer], states that he was seen in ER on Wednesday and transferred to [place] d/t elevated cardiac enzymes, had heart cath w/ minimal findings, was sent home on baby aspirin and cholesterol medications but no BP medicine. Pt denies chest pain or headache, reports mild dizziness. Coronavirus screen: Vaccine status: Patient reports receiving the 2nd dose of the covid vaccine. Ebola Screen: No symptoms or risks identified at this time. Initial Sepsis Screen: Does the patient meet any 2 criteria? No. Patient's initial sepsis screen is negative. Does the patient have a suspected source of infection? No. Patient's initial sepsis screen is negative. Risk Assessment: Do you want to hurt yourself or someone else? Patient reports no desire to harm self or others. Onset of symptoms was May 26, 2023. 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 - Social history:: Smoking status: Patient denies any tobacco usage or history of. Screenin:23 [facility] ED Fall Risk Assessment (Adult) History of falling in the last 3 months, kc6 including since admission No falls in past 3 months (0 pts) Confusion or Disorientation No (0 pts) Intoxicated or Sedated No (0 pts) Impaired Gait No (0 pts) Mobility Assist Device Used No (0 pt) Altered Elimination No (0 pt) Score/Fall Risk Level 0 - 2 = Low Risk. Abuse screen: Denies threats or abuse. Denies injuries from another. Nutritional screening: No deficits noted. Tuberculosis screening: No symptoms or risk factors identified. Assessment: 12:34 General: Appears in no apparent distress. comfortable, Behavior is calm, cooperative, kc6 appropriate for age. Pain: Complains of pain in left arm. Neuro: Level of Consciousness is awake, alert, obeys commands, Oriented to person, place, time, situation, Appropriate for age. Cardiovascular: Denies chest pain, Heart tones S1 S2 present Capillary refill < 3 seconds Rhythm is sinus rhythm. Respiratory: Airway is patent Trachea midline Respiratory effort is even, unlabored, Respiratory pattern is regular, symmetrical, Denies shortness of breath. GI: No signs and/or symptoms were reported involving the gastrointestinal system. : No signs and/or symptoms were reported regarding the genitourinary system. EENT: No signs and/or symptoms were reported regarding the EENT system. Derm: No signs and/or symptoms reported regarding the dermatologic system. Skin is intact, is healthy with good turgor, Skin is pink, warm \T\ dry. Musculoskeletal: No signs and/or symptoms reported regarding the musculoskeletal system. Circulation, motion, and sensation intact. Capillary refill < 3 seconds, Range of motion: intact in all extremities. 13:34 Reassessment: Patient appears in no apparent distress at this time. No changes from kc6 previously documented assessment. Patient and/or family updated on plan of care and expected duration. Pain level reassessed. Patient is alert, oriented x 3, equal unlabored respirations, skin warm/dry/pink. 14:34 Reassessment: Patient appears in no apparent distress at this time. No changes from kc6 previously documented assessment. Patient and/or family updated on plan of care and expected duration. Pain level reassessed. Patient is alert, oriented x 3, equal unlabored respirations, skin warm/dry/pink. 15:34 Reassessment: Patient appears in no apparent distress at this time. No changes from kc6 previously documented assessment. Patient and/or family updated on plan of care and expected duration. Pain level reassessed. Patient is alert, oriented x 3, equal unlabored respirations, skin warm/dry/pink. Vital Signs: 12:05 BP 181 / 91; Pulse 73; Resp 18; Temp 97.8; Pulse Ox 99% on R/A; Weight 79.38 kg; Height ph 5 ft. 8 in. ; 13:00 BP 181 / 90; Pulse 71; Resp 20 S; Pulse Ox 96% on R/A; kc6 14:09 BP 173 / 87; Pulse 75; Resp 17 S; Pulse Ox 97% on R/A; kc6 16:05 BP 172 / 91; Pulse 63; Resp 17 S; Pulse Ox 97% on R/A; kc6 12:05 Body Mass Index 26.61 (79.38 kg, 172.72 cm) ph ED Course: 11:55 Patient arrived in ED. mg5 12:00 Lesli Burris, RN is Primary Nurse. kc6 12:05 Madison Barclay is Attending Physician. ci 12:08 Triage completed. ph 12:09 Arm band placed on Patient placed in an exam room, on a stretcher. ph 12:23 Inserted saline lock: 18 gauge in right forearm, using aseptic technique. Blood kc6 collected. Patient maintains SpO2 saturation greater than 95% on room air. 12:24 Patient has correct armband on for positive identification. Bed in low position. Call kc6 light in reach. Side rails up X 1. Adult w/ patient. Client placed on continuous cardiac and pulse oximetry monitoring. NIBP monitoring applied. grocery store bagger on. 12:49 XRAY Chest (1 view) In Process Unspecified. EDMS 16:11 No provider procedures requiring assistance completed. IV discontinued, intact, kc6 bleeding controlled, No redness/swelling at site. Pressure dressing applied. Administered Medications: No medications were administered Medication: 16:12 VIS not applicable for this client. kc6 Outcome: 15:38 Discharge ordered by MD. ci 16:12 Discharged to home ambulatory, with significant other, kc6 16:12 Condition: stable 16:12 Discharge instructions given to patient, Instructed on discharge instructions, follow up and referral plans. medication usage, Demonstrated understanding of instructions, follow-up care, medications, Prescriptions given X 1, 16:12 Patient left the ED. kc6 Signatures: Dispatcher [employer] EDLydia Lora, RN RN ph Lesli Burris, SERGIO RN kc6 Mary Nazario mg5 Madison Barclay ci Corrections: (The following items were deleted from the chart) 12:09 12:08 Home Meds: None; ph
--- NOTE | 2023-05-26 15:38 | EDPHYS ---
Physician Documentation [facility] Name: Oskar Gomez Age: 72 yrs Sex: Male : 1950 Arrival Date: 05/26/2023 Time: 11:50 Bed 15 Private MD: ED Physician Madison Barclay HPI: 05/26 12:24 This 72 yrs old Male presents to ER via Ambulatory with complaints of High Blood ci Pressure. 12:24 Patient is a 72-year-old male with PMH CLL, hep C in remission, elevated troponin who ci presents to the ED with chief complaint of hypertension that is been ongoing for the past week. Patient was evaluated in the ED on May 22 for similar complaints and found to have an elevated troponin. Patient had heart cath during his admission with no significant coronary artery disease, no stents placed. Patient reports he was discharged from [facility] with cholesterol meds and aspirin but they forgot to start him on blood pressure meds. Patient is scheduled to see his PCP tomorrow. Patient also complains of increased urinary frequency, requesting for to check his urine. He denies any chest pain, shortness of breath, palpitations, nausea/vomiting.. 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 - Social history:: Smoking status: Patient denies any tobacco usage or history of. ROS: 12:24 Constitutional: Negative for body aches, fatigue, fever, ci 12:24 Cardiovascular: Negative for chest pain, edema, orthopnea, 12:24 Respiratory: Negative for cough, orthopnea, shortness of breath, 12:24 Abdomen/GI: Negative for abdominal pain, nausea, vomiting, and diarrhea, 12:24 : Positive for urinary frequency, 12:24 MS/extremity: Positive for Left shoulder pain, Exam: 12:24 Constitutional: This is a well developed, well nourished patient who is awake, alert, ci and in no acute distress. Head/Face: Normocephalic, atraumatic. Eyes: Pupils equal round and reactive to light, extra-ocular motions intact. Lids and lashes normal. Conjunctiva and sclera are non-icteric and not injected. Cornea within normal limits. Periorbital areas with no swelling, redness, or edema. ENT: Nares patent. No nasal discharge, no septal abnormalities noted. Tympanic membranes are normal and external auditory canals are clear. Oropharynx with no redness, swelling, or masses, exudates, or evidence of obstruction, uvula midline. Mucous membranes moist. Neck: Trachea midline, no thyromegaly or masses palpated, and no cervical lymphadenopathy. Supple, full range of motion without nuchal rigidity, or vertebral point tenderness. No Meningismus. Chest/axilla: Normal chest wall appearance and motion. Nontender with no deformity. No lesions are appreciated. Cardiovascular: Regular rate and rhythm with a normal S1 and S2. No gallops, murmurs, or rubs. No JVD. No pulse deficits. Respiratory: Lungs have equal breath sounds bilaterally, clear to auscultation and percussion. No rales, rhonchi or wheezes noted. No increased work of breathing, no retractions or nasal flaring. Abdomen/GI: Soft, non-tender, with normal bowel sounds. No distension or tympany. No guarding or rebound. No evidence of tenderness throughout. Back: No spinal tenderness. No costovertebral tenderness. Full range of motion. Skin: Warm, dry with normal turgor. Normal color with no rashes, no lesions, and no evidence of cellulitis. MS/ Extremity: Pulses equal, no cyanosis. Neurovascular intact. Full, normal range of motion. Neuro: Awake and alert, GCS 15, oriented to person, place, time, and situation. Cranial nerves II-XII grossly intact. Motor strength 5/5 in all extremities. Sensory grossly intact. Cerebellar exam normal. Normal gait. Psych: Awake, alert, with orientation to person, place and time. Behavior, mood, and affect are within normal limits. Vital Signs: 12:05 BP 181 / 91; Pulse 73; Resp 18; Temp 97.8; Pulse Ox 99% on R/A; Weight 79.38 kg; Height ph 5 ft. 8 in. ; 13:00 BP 181 / 90; Pulse 71; Resp 20 S; Pulse Ox 96% on R/A; kc6 14:09 BP 173 / 87; Pulse 75; Resp 17 S; Pulse Ox 97% on R/A; kc6 16:05 BP 172 / 91; Pulse 63; Resp 17 S; Pulse Ox 97% on R/A; kc6 12:05 Body Mass Index 26.61 (79.38 kg, 172.72 cm) ph MDM: 12:05 Patient medically screened. ci 12:24 Differential diagnosis: hypertensive crisis, ACS, UTI, asymptomatic hypertension. Data ci reviewed: vital signs, nurses notes, old medical records, lab test result(s), EKG, radiologic studies, plain films. Historians other than the Patient: Spouse/Significant Other: . External Records Reviewed: Outpatient record: Patient was seen in the ED on 05/22/2023, found to have elevated troponins, transferred to [facility] Care significantly affected by the following chronic conditions: Cancer, Hyperlipidemia. 15:32 ED course: Initial BP on arrival 181/91. BNP slightly elevated, chest x-ray shows no ci volume overload, troponin elevated but no delta change, decreased from previous, patient denies chest pain, ACS unlikely given negative heart cath a few days ago. Low suspicion for hypertensive emergency, no pulmonary edema, patient in no apparent distress on exam. Patient also noted to have some leukocytosis, this appears to be chronic, reports he just saw his oncologist, history of CLL and everything was stable and this was to follow-up in the year. Patient and requesting BP meds. Will start on low-dose antihypertensive, scheduled to see PCP tomorrow.. 15:35 Counseling: I had a detailed discussion with the patient and/or guardian regarding the ci historical points, exam findings, and any diagnostic results supporting the discharge/admit diagnosis, the presence of at least one elevated blood pressure reading (>120/80) during this emergency department visit, lab results, radiology results, the need for outpatient follow up, to return to the emergency department if symptoms worsen or persist or if there are any questions or concerns that arise at home. 05/26 12:22 Order name: Basic Metabolic Panel; Complete Time: 13:33 ci 05/26 12:22 Order name: CBC with Diff; Complete Time: 13:33 ci 05/26 13:33 Interpretation: Abnormal: WBC 18.20. ci 05/26 12:22 Order name: Magnesium; Complete Time: 13:33 ci 05/26 12:22 Order name: NT PRO-BNP; Complete Time: 13:33 ci 05/26 13:33 Interpretation: Abnormal: NT PRO-BNP 247. ci 05/26 12:22 Order name: Troponin HS; Complete Time: 13:33 ci 05/26 13:34 Interpretation: Abnormal: Troponin HS 77.9. ci 05/26 12:22 Order name: Urinalysis w/ reflexes ci 05/26 12:39 Order name: Manual Differential; Complete Time: 13:33 EDMS 05/26 13:34 Order name: Troponin HS; Complete Time: 14:47 ci 05/26 12:22 Order name: XRAY Chest (1 view); Complete Time: 15:24 ci 05/26 12:22 Order name: EKG; Complete Time: 12:22 ci 05/26 12:22 Order name: Cardiac monitoring; Complete Time: 12:23 ci 05/26 12:22 Order name: EKG - Nurse/Tech; Complete Time: 12:23 ci 05/26 12:22 Order name: IV Saline Lock; Complete Time: 12:23 ci 05/26 12:22 Order name: Labs collected and sent; Complete Time: 12:23 ci 05/26 12:22 Order name: O2 Per Protocol; Complete Time: 12:23 ci 05/26 12:22 Order name: O2 Sat Monitoring; Complete Time: 12:23 ci Administered Medications: No medications were administered Disposition Summary: 05/26/23 15:38 Discharge Ordered Notes: Location: Home ci Condition: Stable ci Diagnosis - Essential (primary) hypertension ci - Elevated white blood cell count, unspecified ci Discharge Instructions: - Discharge Summary Sheet ci - Hypertension, Adult, [id number] ci - How to Take Your Blood Pressure, [id number] ci - Leukocytosis ci - Managing Your Hypertension ci - Preventing Hypertension ci Forms: - Medication Reconciliation Form ci - Thank You Letter ci - Antibiotic Education ci - Prescription Opioid Use ci - Patient Portal Instructions ci - Leadership Thank You Letter ci Prescriptions: - hydrochlorothiazide 12.5 mg Oral capsule - take 1 capsule ORAL route daily; 30 capsule; Refills: 0, Product Selection ci Permitted Signatures: Dispatcher [employer] Lydia Dutton RN RN ph [place], [place] ci Corrections: (The following items were deleted from the chart) 12:09 12:08 Home Meds: None; ph ph 12:32 12:24 Patient is a 72-year-old male with PMH CLL, hep C in remission, elevated troponin ci who presents to the ED with chief complaint of hypertension that is been ongoing for the past week. Patient was evaluated in the ED on May 22 for similar complaints and found to have an elevated troponin. Patient reports he was discharged from [facility] with cholesterol meds and aspirin but they forgot to start him on blood pressure meds. Patient is scheduled to see his PCP tomorrow. Patient also complains of increased urinary frequency, requesting for to check his urine. He denies any chest pain, shortness of breath, palpitations, nausea/vomiting.. ci 13:34 13:34 Troponin HS 77.9. ci ci 18:27 15:32 ED course: Troponin elevated but no delta change, decreased from previous, ci patient denies chest pain, ACS unlikely given negative heart cath a few days ago. Patient also noted to have some leukocytosis, this appears to be chronic, reports he just saw his oncologist, history of CLL and everything was stable and this was to follow-up in the year. Patient and requesting BP meds. Will start on low-dose antihypertensive, scheduled to see PCP tomorrow.. ci
[2023-05-26 16:19] VITALS: TEMP 97.8
[2023-05-26 16:23] VITALS: O2SAT 97
[2023-05-26 16:25] VITALS: BP 172/91
== END 2023-05-26 16:12 | disposition home or self-care (01) ==
LOC: ER 11:50
DX: I10 Essential (primary) hypertension (principal); D72.829 Elevated white blood cell count, unspecified; M25.512 Pain in left shoulder; Z85.6 Personal history of leukemia; Z79.82 Long term (current) use of aspirin
CPT/HCPCS: 36415; 71045; 80048; 81003; 83735; 83880; 84484; 85025